=== PATIENT | male | born 2005 | race Caucasian/White ===

== ENCOUNTER 2025-03-26 15:22 | Outpatient (REF) | payer MEDICAID, SELFPAY ==
[2025-03-26 16:05] LABS: MANUAL DIFF FLAG NO
[2025-03-26 16:14] LABS: Basophils Percent Auto 0.4 % (0-2); Eosinophils Absolute Auto 0.1 X10*3/uL (0.0-0.4); Eosinophils Percent Auto 0.7 % (0-4); Hematocrit 40.6 % (42.0-52.0); Hemoglobin 14.3 g/dl (14.0-18.0); Imm Gran Abs Auto 0.02 X10*3/uL (0.00-0.03); Imm Gran Pct Auto 0.3 % (0.0-0.4); Lymphocytes Absolute Auto 2.8 X10*3/uL (1.2-4.9); Lymphocytes Percent Auto 37.3 % (20-40); Mean Corpuscular HGB Conc 35.2 g/dl (31.0-36.0); Mean Corpuscular Hemoglobin 32.4 pg (27.0-33.0); Mean Corpuscular Volume 91.9 fL (80.0-98.0); Mean Platelet Volume 9.5 fL (9.4-12.4); Monocytes Absolute Auto 0.6 X10*3/uL (0.1-1.2); Monocytes Percent Auto 8.7 % (2-11); Neutrophils Absolute Auto 3.9 x10*3/uL (2.0-8.3); Neutrophils Percent Auto 52.6 % (45-73); Platelet Count 194 X10*3/uL (160-400); Red Blood Count 4.42 X10*6/uL (4.60-5.80); Red Cell Distribution Width 12.2 % (11.0-16.0); White Blood Count 7.4 X10*3/uL (4.8-10.8)
[2025-03-26 16:22] LABS: Estimated Average Glucose 97 mg/dL; Total Hemoglobin (HGBA1C) 3747.2576 umol/L
--- OUTSIDE RECORDS SUMMARY | 2025-03-26 16:35 | XMS_ITS | Encounter Summary ---
Author Organization [employer] Address [address] [place] [address] Care Team Providers Care Supervisor Diagnostic Name Role Phone Aruna Baeza JAMSHID Primary Care Provider [phone] Encounter Details Date Type Department Care Team (Latest Contact Info) Description 03/26/2025 Travel Social History Tobacco Use Types Packs/Day Years Used Date Smoking Tobacco: Never Passive Smoke Exposure: Never Smokeless Tobacco: Former Comments:Reports Vaping cont inuously Alcohol Use Standard Drinks/Week Comments Never 0 (1 standard drink = 0.6 oz pur e alcohol) Depression Answer Date Recorded Patient Health Questionnaire-9 Score 1 02/24/2023 Housing Stability Answer Date Recorded What is your housing situation today? I have brigido sandoval 03/16/[address] you li ve. Do you have problems with any of the following? None of the above 03/16/2025 Food Insecurity Answer Date Recorded Within the past 12 months, y ou worried that your food would run out before you got money to buy more: Never True 03/16/2025 Within the past 12 months,th e food you bought just didn't last and you didn't have enough money to get more: Never True Transportation Answer Date Recorded In the past 12 months, has l ack of transportation kept you from medical appts, meetings, work or from getting things needed for daily living? No 03/16/2025 Utilities Answer Date Recorded In the past 12 months, has t he electric, gas, oil or water company threatened to shut off services in your home? No 03/16/2025 Depression Answer Date Recorded Patient Health Questionnaire-2 Score 0 02/24/2023 Internet Access Answer Date Recorded Internet Access Q1 Yes 03/16/2025 Internet Access Q2 Not on file 03/16/2025 Sex and Gender Information Value Date Recorded Sex Assigned at Male 08/24/2022 10:19 AM EDT Legal Sex Male 10:19 AM EDT Gender Identity Male 01/29/2023 9:07 AM EDT Sexual Orientation Choose not to disclose 2022 9:07 AM EDT documented as of this encounter Plan of Treatment Upcoming Encounters Date Type Department Care Team (Late st Contact Info) Description 05/18/2025 3:15 PM EDT Office Visit [facility] [address] [place] [address] Aruna Baeza NP [address] [place] [address] documented as of this encounter Visit Diagnoses Not on filedocumented in this encounter Additional Health Concerns Assessment Noted Time PHQ-9 Depression Total Score: 1 02/25/20 23 11:32 AM EDT documented as of this encounter Care Teams Supervisor Diagnostic Relationship Specialty Start Date End Date Aruna Baeza NP [address] [place] [address] PCP - General Family Medicine 12/26/24 documented as of this encounter
[2025-03-26 17:08] LABS: Cholesterol 192 mg/dL (<200); HDL Cholesterol 42 mg/dL (>40); LDL Cholesterol Calculated 113 mg/dL (<100); Triglycerides 185 mg/dL (<150)
[2025-03-27 08:28] LABS: HBS Num1 21.46 mIU/mL (0-7.99); HBc Num1 0.06 S/CO (0.00-0.79); HBsAGNum1 0.37 S/CO (0.00-0.99); HIV AB/AG Nonreactive (Nonreactive); HIV Num 1 0.07 S/CO (0.00-0.99); Hepatitis B Core Antibody Nonreactive (Nonreactive); Hepatitis B Surface Antigen Negative (Negative); ~HepC Num1 0.16 S/CO (0.00-0.79); ~Hepatitis B Surface Antibody REACTIVE (Nonreactive); ~Hepatitis C Antibody Nonreactive (Nonreactive)
[2025-03-27 11:08] LABS: CT PCR NOT DETECTED (Not Detect.); NG PCR NOT DETECTED (Not Detect.)
== END 2025-03-26 15:23 | disposition home or self-care (01) ==
LOC: HO.HHCL 15:22
PROVIDERS: Visit Provider Nurse Practitioner Family
DX: Z00.00 Encounter for general adult medical examination without abnormal findings (principal); Z11.4 Encounter for screening for human immunodeficiency virus [HIV]; Z13.1 Encounter for screening for diabetes mellitus; Z11.59 Encounter for screening for other viral diseases; Z13.220 Encounter for screening for lipoid disorders
CPT/HCPCS: 80061; 83036; 85025; 86704; 86706; 86803; 87340; 87389; 87491; 87591

== ENCOUNTER 2025-08-17 12:29 | Inpatient (IN) | payer OTHER, SELFPAY ==
--- NOTE | 2025-08-17 | ECG_ITS ---
Test Reason : CHECK QTC Blood Pressure : */* mmHG Vent. Rate : 66 BPM Atrial Rate : 66 BPM P-R Int : 124 ms QRS Dur : 86 ms QT Int : 384 ms P-R-T Axes : 74 82 57 degrees QTcB Int : 402 ms Sinus rhythm with marked sinus arrhythmia Otherwise normal ECG No previous ECGs available Referred By: Fredi Varner Electronically Signed By: SILVANA TELLO MD
--- OUTSIDE RECORDS SUMMARY | 2025-08-17 11:30 | XMS_ITS | Encounter Summary ---
Author Organization [facility] [employer] Address [address] [place] [address] Care Team Providers Care Precision Grinder Name Role Phone Aruna Baeza NP Primary Care Provider Reason for Referral * Consultation (Routine) - Pending Review Specialty Diagnoses / Procedures Referred By Diony ang Referred To Contact Physical Therapy Diagnoses Cervicalgia Aruna Baeza NP [address] [place] [address] Phone: tel: fax: Referral ID Status Reason Start Date Expiration Date Visits Requested Visits Authorized [id number] Pending Review Specialty Services Required 08/17/2026 1 1 Reason for Visit * Reason Comments Follow-up Encounter Details Date Type Department Care Team (Late st Contact Info) Description 08/17/2025 11:30 AM EDT Office Visit [facility] [address] [place] [address] Aruna Baeza NP [address] [place] [address] Cervicalgia (Primary Dx); Mood disorder (CMS/HCC); Cannabis use disorder Social History Tobacco Use Types Packs/Day Years Used Date Smoking Tobacco: Never Passive Smoke Exposure: Never Smokeless Tobacco: Former Comments:Reports Vaping cont inuously Alcohol Use Standard Drinks/Week Comments Never 0 (1 standard drink = 0.6 oz pur e alcohol) Depression Answer Date Recorded Patient Health Questionnaire-9 Score 27 08/17/2025 Patient Health Questionnaire-9 Score 27 08/17/2025 Last PHQ-9: Questionnaire Data Not on file 1 Housing Stability Answer Date Recorded What is [...] Answer Date Recorded Patient Health Questionnaire-2 Score 6 08/17/2025 Internet Access Answer Date Recorded Internet Access Q1 Yes 03/16/2025 Internet Access Q2 Not on file 03/16/2025 Sex and Gender Information Value Date Recorded Sex Assigned at Male 08/24/2022 10:19 AM EDT Legal Sex Male 10:19 AM EDT Gender Identity Male 01/29/2023 9:07 AM EDT Sexual Orientation Choose not to disclose 2022 9:07 AM EDT documented as of this encounter Last Filed Vital Signs Vital Sign Reading Time Taken Comments Blood Pressure 118/80 08/17/2025 11:14 AM EDT Pulse 71 08/17/2025 11:14 AM EDT Temperature 36.7 C (98 F) 08/17/2025 11:14 AM EDT Respiratory Rate 20 08/17/2025 11:14 AM EDT Oxygen Saturation - - Inhaled Oxygen Concentration - - Weight 64.4 kg (142 lb) 08/17/2025 11:14 AM EDT Height 175.3 cm (5' 9 ) 08/17/2025 11:14 AM EDT Body Mass Index 20.97 08/17/2025 11:14 AM EDT documented in this encounter Functional Status * Over the past 2 weeks, how often have you been bothered by any of the following problems? Question Answer Date of Assessment Author Patient Health Questionnaire-2 Score 6 08/17/2025 1:02 PM EDT Kirt Mercado Little interest or pleasure in doing things Answer Date of Assessment Author Nearly every day 08/17/2025 1:02 PM EDT Kirt Lizama * Feeling down, depressed, or hopeless Answer Date of Assessment Author Nearly every day 08/17/2025 1:02 PM EDT Kirt Lizama * Trouble falling or staying asleep, or sleeping too much Answer Date of Assessment Author Nearly every day 08/17/2025 1:02 PM EDT Kirt Lizama * Feeling tired or having little energy Answer Date of Assessment Author Nearly every day 08/17/2025 1:02 PM EDT Kirt Lizama * Poor appetite or overeating Answer Date of Assessment Author Nearly every day 08/17/2025 1:02 PM HUNTERT Kirt Lizama * Feeling bad about yourself - or that you are a failure or have let yourself or your family down Answer Date of Assessment Author Nearly every day 08/17/2025 1:02 PM Kirt Bhatia Trouble concentrating on things, such as reading the newspaper or watching television Answer Date of Assessment Author Nearly every day 08/17/2025 1:02 PM Kirt Bhatia * Moving or speaking so slowly that other people could have noticed? Or the opposite - being so fidgety or restless that you have been moving around a lot more than usual. Answer Date of Assessment Author Nearly every day 08/17/2025 1:02 PM Kirt Bhatia * Thoughts that you would be better off or hurting yourself in some way Answer Date of Assessment Author Nearly every day 08/17/2025 1:02 PM Kirt Bhatia * Patient Health Questionnaire-9 Score Answer Date of Assessment Author 27 08/17/2025 1:02 PM HUNTERT Kirt Hidalgo How difficult have these problems made it for you to do your work, take care of things at home, or get along with other people? Answer Date of Assessment Author Very difficult 08/17/2025 1:02 PM Kirt Faye Over the last 2 weeks, how often have you been bothered by any of the following problems? Question Answer Date of Assessment Author Feeling nervous, anxious, or on edge 3 08/17/2025 1:01 PM EDT Kirt Garvin Not being able to stop or control worrying 3 08/17/2025 1:01 PM EDT Kirt Garvin Worrying too much about different things 3 08/17/2025 1:01 PM EDT Kirt Garvin Trouble relaxing 3 08/17/2025 1:01 PM EDT Kirt Galeana Being so restless that it is hard to sit still 3 08/17/2025 1:01 PM EDT Kirt Garvin Becoming easily annoyed or irritable 3 08/17/2025 1:01 PM EDT Kirt Garvin Feeling afraid as if something awful might happen 3 08/17/2025 1:01 PM EDT Kirt Lizama FRANCISCO J-7 Total Score 21 08/17/2025 1:01 PM EDT Kirt Garvin documented as of this encounter Miscellaneous Notes * Assessment & Plan Note - Aruna Baeza NP - 08/17/2025 11:30 AM EDTAssociated Problem(s): Cervicalgia Orders: XR Cervical Spine 5 View; Future Referral to Physical Therapy; Future * Assessment & Plan Note - Aruna Baeza NP - 08/17/2025 11:30 AM EDTAssociated Problem(s): Mood disorder ([facility] [address]) * Assessment & Plan Note - Aruna Baeza NP - 08/17/2025 11:30 AM EDTAssociated Problem(s): Cannabis use disorder documented in this encounter Plan of Treatment Scheduled Orders Name Type Priority Associated Diagnoses Orde r Schedule XR Cervical Spine 5 View Imaging Routine Cervicalgia Expected: 08/17/2025, Expires: 08/17/2026 Scheduled Referrals Name Type Priority Associated Diagnoses Orde r Schedule Referral to Physical Therapy Outpatient Referral Routine Cervicalgia Expected: 08/17/2025 (Approximate), Expires: 08/17/2026 documented as of this encounter Visit Diagnoses Diagnosis Cervicalgia- Primary Mood disorder (CMS/HCC) Unspecified episodic mood disorder Cannabis use disorder documented in this encounter Additional Health Concerns Assessment Noted Time PHQ-9 Depression Total Score: 27 025 1:02 PM EDT documented as of this encounter Care Teams Precision Grinder Relationship Specialty Start Date End Date Aruna Baeza NP [address] [place] [address] PCP - General Family Medicine 12/26/24 documented as of this encounter
--- NOTE | 2025-08-17 12:37 | ED_ITS ---
HPI - Psych General Chief Complaint: Psychiatric Symptoms Stated Complaint: Mental Health Time Seen by Provider: 08/17/25 12:57 Source: patient, RN notes reviewed, old records reviewed and other (primary care provider called for an expect) Mode of arrival: ambulatory Limitations: no limitations History of Present Illness ED Provider: NICHOLAS Varner HPI Narrative: 20-year-old male with medical history of depression, seizure, presents to the ED due to increased depression and suicidal ideation. Patient was at his primary care doctor office when he was endorsing increased depression and suicidal ideation. Primary care doctor called the ED and presented patient as an expect. Primary care doctor stated patient has history of 2 previous suicide attempts. Patient states he has been experiencing increased depression due to him thinking about his mom who when he was 6. He is endorsing suicidal ideation without a plan. Patient states he has history of visual hallucinations and will see dark shadows, with most recent history being 3 weeks ago, however, this has resolved. Additionally, he is endorsing mid back pain due to an old fracture, however he cannot give me details surrounding this fracture, there is no history or imaging or visits for back pain. Denies alcohol or drug use, homicidal ideation, AH, VH Related Data Home Medications ?Medication ?Instructions ?Recorded ?Confirmed lamotrigine 25 mg tablet 50 mg PO DAILY depressive di sorder 08/17/25 08/17/25 lorazepam 0.5 mg tablet 0.5 mg PO DAILY PRN anxiety 08/17/25 08/17/25 quetiapine 50 mg tablet (Seroquel) 50 mg PO BEDTIME [place] N insomnia 08/17/25 08/17/25 sertraline 50 mg tablet 50 mg PO DAILY 08/17/2507/26 Allergies Allergy/AdvReac Type Severity Reaction Status Date / Time No Known Allergies Allergy Verified 08/17/25 12:40 Review of Systems 2 Review of Systems: CONST: Negative for fever, body aches and chills. HENT: Negative for neck pain/stiffness, headache, congestion, sore throat, swelling. EYES: Negative for discharge/pain or vision changes. RESP: Negative for cough/hemoptysis and shortness of breath. CV: Negative chest pain, difficulty breathing, palpitations. ABD: Negative pain, nausea, vomiting. : Negative increase frequency, dysuria, blood in urine or stool. MUSC: Negative for muscle aches, edema. POS back pain SKIN: Negative rash, lesions/sores. NEURO: Negative headache, dizziness, weakness. PSYCH: POS increased depression, suicidal ideation Yes all other systems are reviewed and are negative [facility] Past Medical History Attestation statement: The following information was validated with the patient. Source: old records reviewed and nursing notes reviewed Medical History Epileptic seizure Social History Social History Household Members: Family Housing: Apartment Do you presently have visiting nurse or other home services: No Alcohol intake: unknown Patient Tobacco Use Status: Never used Tobacco Smoked in Last 30 Days: No Use of substances other than those prescribed or required for medical reasons: Yes Substance Use Type: Marijuana Substance Use Frequency: Chronic Longstanding Currently Displaying Signs/Symptoms of Drug Intoxication Withdrawal: No Have you been hit, kicked, punched, or otherwise hurt by someone within the past year? If so, by whom?: No Do you feel safe in your current relationship?: No Current Relationship Is there a partner from a previous relationship who is making you feel unsafe now?: No Are you made to feel afraid or neglected: No Advance Directives: No Advance Directives Information Provided: Yes Do you have thoughts of harming others: None Do you have a plan to hurt others: No Plan Recently lost weight without trying: No Nutrition Risks: No Nutritional Risk Poor oral hygiene: No Physical Exam 2 Vital Signs: Vital Signs: Last Vital Signs Temp 98.5 F 08/20/25 08:00 Pulse 56 08/20/25 08:00 Resp 18 08/20/25 08:00 BP 125/71 08/20/25 08:00 Pulse Ox 99 08/20/25 08:00 O2 Del Method Room Air 08/20/25 08:00 BMI result Body Mass Index 17.9 GENERAL APPEARANCE: ?AxOx4, generally well-appearing, no acute distress. HEENT: ?NC, AT. MMM. EOMI, clear conjunctiva, oropharynx clear. NECK: ?Supple without lymphadenopathy.? No stiffness or restricted ROM. HEART:? Normal rate and regular rhythm, normal S1/S2, no m/r/g LUNGS:? CTAB, moving air well. No crackles or wheezes are heard. ABDOMEN: ?Soft, nontender, nondistended with good bowel sounds heard. BACK: No CVAT, no obvious deformity. EXTREMITIES: ?Without cyanosis, clubbing or edema. NEUROLOGICAL: ?Grossly nonfocal. Alert and oriented, moving all 4 extremities. Observed to ambulate with normal gait. Skin: ?Warm and dry without any rash. Course Course Course Narrative: Adriana Abad PUBLIC RELATIONS STUDIES DIRECTOR 08/17 1240 This is a rapid medical exam. Deferrd additional HPI, ROS, PE to primary provider. 20 yo male here with depression, SI no plan. also has cough Will need labs, WESLEY, viral testing, crisis eval. H/o seizures, off meds at this time. VSS Medications Administered Generic Name Dose Route Start Last Admin Trade Name Freq PRN Reason Stop Dose Admin Acetaminophen 650 mg 08/17/25 16:51 08/20/25 09:23 Acetaminophen 325 Mg Tablet PO 650 mg Q6H PRN Administration Headache/Pain, Scale 1-10 Hydroxyzine HCl 25 mg 08/17/25 16:51 08/19/25 23:33 Hydroxyzine Hcl 25 Mg Tablet PO 25 mg Q6H PRN Administration mild anxiety Ibuprofen 600 mg 08/18/25 16:04 08/19/25 22:28 Ibuprofen 600 Mg Tablet PO 600 mg Q8H PRN Administration Pain, Moderate(Pain Scale 4-6) Lamotrigine 50 mg 08/17/25 16:55 08/20/25 08:34 Lamotrigine 25 Mg Tablet PO 50 mg DAILY YOLANDA Administration Lidocaine 1 patch 08/19/25 15:42 08/19/25 17:15 Lidocaine 4 % Patch Adh..Patch TRANSDERMA 1 patch DAILY PRN Administration Pain, Moderate(Pain Scale 4-6) Protocol Lorazepam 0.5 mg 08/17/25 16:51 08/19/25 08:39 Lorazepam 0.5 Mg Tablet PO 0.5 mg DAILY PRN Administration Anxiety Nicotine 21 mg 08/18/25 09:00 08/20/25 08:35 Nicotine 21 Mg Patch.Td24 TRANSDERMA 21 mg DAILY YOLANDA Administration Nicotine Polacrilex 4 mg 08/17/25 16:51 08/18/25 17:54 Nicotine Polacrilex 2 Mg Gum BUCCAL 4 mg Q2H PRN Administration Nicotine Cravings Olanzapine 5 mg 08/19/25 18:01 08/19/25 23:33 Olanzapine 5 Mg Tablet PO 5 mg Q4H PRN Administration agitation Ondansetron HCl 8 mg 08/18/25 06:23 08/18/25 06:39 Ondansetron Odt 8 Mg Tab.Rapdis TRANSLINGU 8 mg Q12H PRN Administration Nausea and Vomiting Quetiapine Fumarate 50 mg 08/17/25 16:51 08/19/25 21:11 Quetiapine Fumarate 50 Mg Tablet PO 50 mg BEDTIME PRN Administration Insomnia Sertraline HCl 50 mg 08/18/25 09:00 08/20/25 08:34 Sertraline Hcl 50 Mg Tablet PO 50 mg DAILY YOLANDA Administration Trazodone HCl 50 mg 08/17/25 16:51 08/19/25 23:33 Trazodone Hcl 50 Mg Tablet PO 50 mg BEDTIME MRX1 PRN Administration Insomnia Discontinued Medications Generic Name Dose Route Start Last Admin Trade Name Freq PRN Reason Stop Dose Admin Acetaminophen 975 mg 08/17/25 14:25 08/17/25 15:00 Acetaminophen 325 Mg Tablet PO 08/17/25 14:26 975 mg ONCE ONE Administration Ibuprofen 400 mg 08/17/25 14:25 08/17/25 15:00 Ibuprofen 400 Mg Tablet PO 08/17/25 14:26 400 mg ONCE ONE Administration Tramadol HCl 50 mg 08/19/25 00:35 08/19/25 00:46 Tramadol Hcl 50 Mg Tablet PO 08/19/25 00:36 50 mg ONCE ONE Administration Medical Decision Making Medical Decision Making MDM Narrative: 20-year-old male with medical history of depression, seizure, presents to the ED due to increased depression and suicidal ideation. Patient was at his primary care doctor office when he was endorsing increased depression and suicidal ideation. Primary care doctor called the ED and presented patient as an expect. Primary care doctor stated patient has history of 2 previous suicide attempts. Patient states he has been experiencing increased depression due to him thinking about his mom who when he was 6. He is endorsing suicidal ideation without a plan. Patient states he has history of visual hallucinations and will see dark shadows, with most recent history being 3 weeks ago, however, this has resolved. Additionally, he is endorsing mid back pain due to an old fracture, however he cannot give me details surrounding this fracture, there is no history or imaging or visits for back pain. Denies alcohol or drug use, homicidal ideation, AH, VH EKG sinus rhythm with sinus arrhythmia, no ST-elevation/depression, T-wave abnormality, prolonged QT Labs without leukocytosis/leukopenia, a stable normocytic anemia with a hemoglobin of 13.4, hematocrit of 37.9, no electrolyte abnormality. UA reveals 1+ urine protein, without evidence of blood or bacteria. U tox positive for marijuana only. Patient met with the care team who ultimately decided section 12 was needed, and patient needed an inpatient level of care. Differential Diagnosis Differential Diagnoses: The differential diagnosis associated with the presentation includes Increased depression Increased anxiety Suicidal ideation Visual hallucination Admission/Observation Consideration of admission/observation: Escalation of care including admission/observation considered Consult Healthcare Provider Management of the patient was discussed with: Behavioral Health Provider (CARE team) Lab Data MDM Lab Attestation statement: I reviewed the patient's lab results. 08/17/25 13:22 08/20/25 07:22 Labs: Lab Results 08/17/25 08/17/25 Range/Units 13:22 14:12 WBC 6.1 (4.8-10.8) X10*3/uL RBC 4.15 L (4.60-5.80) X10*6/uL Hgb 13.4 L (14.0-18.0) g/dl Hct 37.9 L (42.0-52.0) % MCV 91.3 (80.0-98.0) fL MCH 32.3 (27.0-33.0) pg MCHC 35.4 (31.0-36.0) g/dl RDW 12.4 (11.0-16.0) % Plt Count 163 (160-400) X10*3/uL MPV 8.9 L (9.4-12.4) fL Immature Gran % (Auto) 0.2 (0.0-0.4) % Neut % (Auto) 54.7 (45-73) % Lymph % (Auto) 36.8 (20-40) % [place] % (Auto) 7.3 (2-11) % Eos % (Auto) 0.7 (0-4) % Baso % (Auto) 0.3 (0-2) % Lymph # (Auto) 2.3 (1.2-4.9) X10*3/uL [place] # (Auto) 0.5 (0.1-1.2) X10*3/uL Eos # (Auto) 0.0 (0.0-0.4) X10*3/uL Baso # (Auto) 0.0 (0.0-0.2) X10*3/uL Abs Immat Gran (auto) 0.01 (0.00-0.03) X10*3/uL Absolute Neuts (auto) 3.4 (2.0-8.3) x10*3/uL Absolute Nucleated RBC 0.000 (0.0-0.012) X10*3/uL Nucleated RBC % (auto) 0.0 (0.0-0.2) /100WBC Sodium 141 (135-145) mmol/L Potassium 4.3 (3.3-5.1) mmol/L Chloride 108 (96-108) mmol/L Carbon Dioxide 27 (22-29) mmol/L Anion Gap 10 L (12-20) BUN 12 (9-16) mg/dL Creatinine 0.86 (0.5-1.4) mg/dL Estim Creat Clear Calc 122.5 Estimated GFR > 60 Random Glucose 77 (60-115) mg/dL Calcium 9.6 (8.4-10.2) mg/dL Total Bilirubin 0.3 (0.0-1.0) mg/dL Direct Bilirubin 0.1 (0.0-0.5) mg/dL AST 24 (5-37) U/L ALT 18 (0-40) U/L Alkaline Phosphatase 82 (39-117) U/L Total Protein 7.3 (6.5-8.0) g/dL Albumin 5.1 H (3.5-5.0) g/dL Urine Color Yellow Urine Appearance Clear Urine pH 6.0 (5.0-9.0) Ur Specific [place] 1.020 (1.005-1.025) Urine Protein 30 (1+) H (Neg-Trace) mg/dL Urine Glucose (UA) Negative (Negative) mg/dL Urine Ketones Negative (Negative) mg/dL Urine Blood Negative (Negative) Urine Nitrite Negative (Negative) Ur Leukocyte Esterase Negative (Negative) Urine RBC 0-2 (0-2) /HPF Urine WBC 0-5 (0-5) /HPF Ur Squamous Epith Cells 0-2 (0-2) /HPF Urine Bacteria None Seen (None Seen) Hyaline Casts 0-2 (0-2) /LPF Urine Opiates Screen Not Detected (Not Detect) Ur Buprenorphine Scrn Not Detected (Not Detect) ng/mL Ur Oxycodone Screen Not Detected (Not Detect) ng/mL Urine Methadone Screen Not Detected (Not Detect) ng/mL Urine Fentanyl Screen Not Detected (Not Detect) Ur Barbiturates Screen Not Detected (Not Detect) Ur Phencyclidine Scrn Not Detected (Not Detect) Ur Amphetamines Screen Not Detected (Not Detect) U Benzodiazepines Scrn Not Detected (Not Detect) Urine Cocaine Screen Not Detected (Not Detect) U Marijuana (THC) Screen POSITIVE H (Not Detect) Ethyl Alcohol < 10 mg/dL COVID-19 (FLORI) Negative (Negative) COVID-19 Clin Com See Note Influenza Type A (JAN) Negative (Negative) Influenza Type B (JAN) Negative (Negative) Influenza A & B Note See Note Independent Interpretation I performed an independent interpretation of an: EKG Interpretation: I personally interpreted the EKG which reveals sinus rhythm with sinus arrhythmia, no ST-elevation/depression, T-wave abnormality, lengthened QT Vent. Rate : 66 BPM Atrial Rate : 66 BPM P-R Int : 124 ms QRS Dur : 86 ms QT Int : 384 ms P-R-T Axes : 74 82 57 degrees QTcB Int : 402 ms Sinus rhythm with marked sinus arrhythmia Otherwise normal ECG No previous ECGs available External Record Review External record reviewed: Inpatient record, Office record and Outpatient record Chronic Conditions Patient?s care impacted by: Other (Depression) Discharge Plan Discharge Patient Disposition: Admitted As Inpatient Interventions: Admission Worksheet (ED) Last Done: 08/17/25 16:52 Discharge Date/Time: 08/17/25 16:53
[2025-08-17 12:38] VITALS: BP 123/67; PULSE 78; RESP 16; TEMP 36.6; O2SAT 98; BMI 17.9
--- NOTE | 2025-08-17 12:59 | MHC.EDTECH ---
Belongings Secured: 1 Patient belonging bag tied to Backpack secured in Pod locker #3.
--- NOTE | 2025-08-17 13:11 | PC.NURSE ---
Pt ambulated back to [facility] at this time by degreasing wheel operator after size changer into safety clothing. Pt coming from triage reporting SI thoughts, states his plans would be to jump off of a bridge. Pt states he has had thoughts in the past and states he has attempted before but states it was not by the same means, but did not want to elaborate more details at this time. Pt is withdrawn, but conversing. Pt states that he has been taking his medications, but did not take them this morning, this RN asked if he knew what medications he takes and their dosages but he was unable to tell, states that he just takes what they prescribe him, expect from PCP office stated they were concerned he had not been taking his medications. Pt explained the process of getting lab work, and urine sample for medical clearance and that he would be seen by careteam after that. Pt in agreement with plan, he was offered PO intake at this time but declined, pt also declined having TV turned on at this time. Pt is sitting on the edge of his bed at this time, no distress. Pt is rubbing his hands back and worth and not wanting to make eye contact with staff.
[2025-08-17 13:28] LABS: MANUAL DIFF FLAG NO
[2025-08-17 13:31] LABS: Hematocrit 37.9 % (42.0-52.0); Hemoglobin 13.4 g/dl (14.0-18.0); Imm Gran Abs Auto 0.01 X10*3/uL (0.00-0.03); Imm Gran Pct Auto 0.2 % (0.0-0.4); Lymphocytes Absolute Auto 2.3 X10*3/uL (1.2-4.9); Mean Corpuscular HGB Conc 35.4 g/dl (31.0-36.0); Mean Corpuscular Hemoglobin 32.3 pg (27.0-33.0); Mean Corpuscular Volume 91.3 fL (80.0-98.0); NRBC Abs Auto 0.000 X10*3/uL (0.0-0.012); NRBC Pct Auto 0.0 /100WBC (0.0-0.2); Platelet Count 163 X10*3/uL (160-400); Red Blood Count 4.15 X10*6/uL (4.60-5.80); White Blood Count 6.1 X10*3/uL (4.8-10.8)
[2025-08-17 13:43] LABS: COVID-19 Test Negative (Negative); IDNOW Serial# 58CA691E
[2025-08-17 13:45] LABS: IDNOW Serial# 55D5AD1C; Influenza B2 Negative (Negative)
[2025-08-17 13:56] LABS: Alanine Aminotransferase 18 U/L (0-40); Albumin Level 5.1 g/dL (3.5-5.0); Alkaline Phosphatase 82 U/L (39-117); Anion Gap 10 (12-20); Aspartate Amino Transferase 24 U/L (5-37); Blood Urea Nitrogen 12 mg/dL (9-16); Calcium 9.6 mg/dL (8.4-10.2); Carbon Dioxide 27 mmol/L (22-29); Chloride 108 mmol/L (96-108); Creatinine Clr Calc Pharmacy 122.5; Estimated Glomerular Filt Rate > 60; Potassium 4.3 mmol/L (3.3-5.1); Sodium 141 mmol/L (135-145); Total Protein 7.3 g/dL (6.5-8.0)
--- NOTE | 2025-08-17 14:02 | PC.NURSE ---
Primary care officce faxed over depression screening form and is now in the pt chart.
[2025-08-17 14:36] LABS: Cannabinoid Screen Urine POSITIVE (Not Detect)
[2025-08-17 15:18] LABS: Appearance Urine Clear; Glucose Urine UA Negative (Negative); PH 6.0 (5.0-9.0); Specific Gravity - Urine 1.020 (1.005-1.025); UMIC TRIGGER UA YES
--- OUTSIDE RECORDS SUMMARY | 2025-08-17 16:19 | XMS_ITS | Encounter Summary ---
Author Organization [facility] Address [address] [facility] 7t [place] [address] Care Team Providers Care Copy Preparer Name Role Phone Aruna Baeza MEDICAL SOCIAL WORKER Primary Care Provider [phone] Reason for Visit * Reason Onset Date Comments fyi 08/17/2025 Encounter Details Date Type Department Care Team (Late st Contact Info) Description 08/17/2025 Telephone [facility] [address] [place], [place] [phone] Aruna Baeza NP [address] [place] [address] fyi Social History Tobacco Use Types Packs/Day Years [...] AM EDT documented as of this encounter Functional Status * Over the past 2 weeks, how often have you been bothered by any of the following problems? Question Answer Date of Assessment Author Patient Health Questionnaire-2 Score 6 08/17/2025 1:02 PM EDT Kirt Mercado * Little interest or pleasure in doing things [...] 1:02 PM EDT Kirt Lizama * Feeling bad about yourself - or that you are a failure or have let yourself or your family down Answer Date of Assessment Author Nearly every day 08/17/2025 1:02 PM EDT Kirt Lizama * Trouble concentrating on things, such as reading the newspaper or watching television Answer Date of Assessment Author Nearly every day 08/17/2025 1:02 PM EDT Kirt Lizama * Moving or speaking so slowly that other people could have noticed? Or the opposite - being so fidgety or restless that you have been moving around a lot more than usual. Answer Date of Assessment Author Nearly every day 08/17/2025 1:02 PM EDT Kirt Lizama * Thoughts that you would be better off or hurting yourself in some way Answer Date of Assessment Author Nearly every day 08/17/2025 1:02 PM EDT Kirt Lizama * Patient Health Questionnaire-9 Score Answer Date of Assessment Author 27 08/17/2025 1:02 PM EDT Kirt Hidalgo * How difficult have these problems made it for you to do your work, take care of things at home, or get along with other people? Answer Date of Assessment Author Very difficult 08/17/2025 1:02 PM EDT Kirt Hidalgo * Over the last 2 weeks, how often [...] as of this encounter Miscellaneous Notes * Telephone Encounter - [place] Mario - 08/17/2025 12:44 PM EDT Tc from pt aunt stating she was advised to call when pt went to the ER , they are currently there. Contact at [phone] documented in this encounter Plan of Treatment Not on file documented as of this encounter Visit Diagnoses Not on filedocumented in this encounter Additional Health Concerns Assessment Noted Time PHQ-9 Depression Total Score: 27 025 1:02 PM EDT documented as of this encounter Care Teams Copy Preparer Relationship Specialty Start Date End Date Aruna Baeza NP [address] [place] [phone] PCP - General Family Medicine 12/26/24 documented as of this encounter
--- OUTSIDE RECORDS SUMMARY | 2025-08-17 16:19 | XMS_ITS | Encounter Summary ---
Author Organization [employer] Address [address] 7[address] [place] [address] Care Team Providers Care Pizza Chef Name Role Phone Aruna Baeza JAMSHID Primary Care Provider Encounter Details Date Type Department Care Team (Latest Contact Info) Description 08/17/2025 Travel Social History Tobacco Use Types Packs/Day [...] your housing situation today? I have brigido lori 03/16/[address] you li [...] Questionnaire-2 Score 6 08/17/2025 1:02 PM EDT Krit Mercado * Little interest or pleasure in [...] Kirt Garvin documented as of this encounter Plan of Treatment Not on file documented as of this encounter Visit Diagnoses Not on filedocumented in this encounter Additional Health Concerns Assessment Noted Time PHQ-9 Depression Total Score: 27 025 1:02 PM EDT documented as of this encounter Care Teams Pizza Chef Relationship Specialty Start Date End Date Aruna Baeza NP [address] [place] [phone] PCP - General Family Medicine 12/26/24 documented as of this encounter
--- OUTSIDE RECORDS SUMMARY | 2025-08-17 16:19 | XMS_ITS | Encounter Summary ---
Author Organization [employer] Address [address] 7[address] [place] [address] Care Team Providers Care Self Pay Specialist Name Role Phone Aruna Baeza NP Primary Care Provider Encounter Details Date Type Department Care Team (Late st Contact Info) Description 08/13/2025 Telephone [facility] [address] [place], [place] [phone] Aruna Baeza NP [address] [place] [address] Social History Tobacco Use Types Packs/Day Years Used Date Smoking Tobacco: Never Passive Smoke Exposure: Never Smokeless Tobacco: Former Comments:Reports Vaping cont inuously Alcohol Use Standard Drinks/Week Comments Never 0 (1 standard drink = 0.6 oz pur e alcohol) Depression Answer Date Recorded Patient Health Questionnaire-9 Score 19 06/01/2025 Patient Health Questionnaire-9 Score 19 06/01/2025 Last PHQ-9: Questionnaire Data Not on file 0 06/01/2025 Housing Stability Answer Date Recorded What is [...] Answer Date Recorded Patient Health Questionnaire-2 Score 4 06/01/2025 Internet Access Answer Date Recorded Internet Access Q1 Yes 03/16/2025 Internet Access Q2 Not on file 03/16/2025 Sex and Gender Information Value Date Recorded Sex Assigned at Male 08/24/2022 10:19 AM EDT Legal Sex Male 10:19 AM EDT Gender Identity Male 01/29/2023 9:07 AM EDT Sexual Orientation Choose not to disclose 2022 9:07 AM EDT documented as of this encounter Miscellaneous Notes * Telephone Encounter - Aruna Baeza NP - 08/13/2025 1:09 PM EDT Care into [facility] counseling, detailed message left for [place] of prescriber regarding pcp concerns and mh. documented in this encounter Plan of Treatment Not on file documented as of this encounter Visit Diagnoses Not on filedocumented in this encounter Additional Health Concerns Assessment Noted Time PHQ-9 Depression Total Score: 19 025 4:42 PM EDT documented as of this encounter Care Teams Self Pay Specialist Relationship Specialty Start Date End Date Aruna Baeza NP [address] [place] [phone] PCP - General Family Medicine 12/26/24 documented as of this encounter
--- OUTSIDE RECORDS SUMMARY | 2025-08-17 16:19 | XMS_ITS | Encounter Summary ---
Author Organization [employer] Address [address] [place] [address] Care Team Providers Care Oil Process Stillman Name Role Phone Aruna Baeza JAMSHID Primary Care Provider [phone] Encounter Details Date Type Department Care Team (Late st Contact Info) Description 08/17/2025 Orders Only GENERIC EXTERNAL DATA DEPARTMENT Provider, Generic External Data Social History Tobacco Use Types Packs/Day Years [...] 08/17/2025 1:02 PM [place] Kirt Lizama * Moving or speaking so [...] on file documented as of this encounter Procedures Procedure Name Priority Date/Time Associated Diagnosis Comments DRUG MONITOR, PANEL 1, SCREEN, URINE Routine 08/17/2025 2:12 PM EDT URINALYSIS, COMPLETE Routine 08/17/2025 2:12 PM EDT INFLUENZA A B2 ID NOW (PATEL) Routine 08/17/2025 1:22 PM EDT COVID-19 ID NOW (PATEL) Routine 08/17/2025 1:22 PM EDT ETHANOL Routine 08/17/2025 1:22 PM EDT CBC WITH AUTO DIFFERENTIAL Routine 08/17/2025 1:22 PM EDT HEPATIC FUNCTION PANEL Routine 08/17/2025 1:22 PM EDT BASIC METABOLIC PANEL Routine 08/17/2025 1:22 PM EDT documented in this encounter Results * (ABNORMAL) Urinalysis Complete (08/17/2025 2:12 PM EDT) Color Urine Yellow [facility] Appearance Urine Clear [facility] PH 6.0 5.0 - 9.0 [facility] Glucose Urine UA Negative Negative mg/dL [facility] Urine Blood Negative Negative [facility] Specific Strum - Urine 1.020 1.005 - 1.025 [facility] Urine Protein 30 (1+)(A) Neg-Trace mg/dL [facility] Urine Ketones Negative Negative mg/dL [facility] Nitrite Urine Negative Negative [facility] Leukocyte Esterase Urine Negative Negative [facility] RBC Urine 0-2 0 - 2 /HPF [facility] Urine WBC 0-5 0 - 5 /HPF [facility] Urine Squamous Epithelial Cell 0-2 0 - 2 /HPF [facility] Urine Bacteria None Seen None Seen [facility] Hyaline Casts, Urine 0-2 0 - 2 /LPF [facility] 08/17/2025 2:12 PM EDT 08/17/2025 3:13 PM EDT us Generic External Data Provider LAB URINE ORDERAB LES Final Result [facility] [address] [place] [phone] [phone] * (ABNORMAL) Drug Monitoring, Panel 1, Screen, Urine (08/17/2025 2:12 PM EDT) Opiate Screen Urine Not Detected Not Detect [facility] Comment:Opiate cut-off is 30 0 ng/mL.Positive results are unconfirmed and should not be used fornon-medical purposes. Barbiturates, Urine Not Detected Not Detect [facility] Comment:Barbiturate cut-off is 200 ng/mL.Positive results are unconfirmed and should not be used fornon-medical purposes. Phencyclidine Screen Urine Not Detected Not Detect [facility] Comment:Phencyclidine cut-of f is 25 ng/mL.Positive results are unconfirmed and should not be used fornon-medical purposes. Amphetamine Screen Urine Not Detected Not Detect [facility] Comment:Amphetamine cut-off is 1000 ng/mL.Positive results are unconfirmed and should not be used fornon-medical purposes. Benzodiazepines Screen Urine Not Detected Not Detect [facility] Comment:Benzodiazepine cut-o ff is 200 ng/mL.Positive results are unconfirmed and should not be used fornon-medical purposes. Cocaine Screen Urine Not Detected Not Detect [facility] Comment:Cocaine cut-off is 3 00 ng/mL.Positive results are unconfirmed and should not be used fornon-medical purposes. Cannabinoid Screen Urine POSITIVE(A) Not Detect [facility] Comment:Cannabinoid cut-off is 50 ng/mL.Positive results are unconfirmed and should not be used fornon-medical purposes. Methadone Screen, Urine Not Detected Not Detect ng/mL [facility] Comment:Methadone cut-off is 300 ng/mL.Positive results are unconfirmed and should not be used fornon-medical purposes. FENTANYL URINE Not Detected Not Detect [facility] Comment:Fentanyl cut-off is 1 ng/mL.Positive results are unconfirmed and should not be used fornon-medical purposes. Oxycodone Urine Screen Not Detected Not Detect ng/mL [facility] Comment:Oxycodone cut-off is 100 ng/mL.Positive results are unconfirmed and should not be used fornon-medical purposes. Buprenorphine Screen Not Detected Not Detect ng/mL [facility] Comment:Buprenorphine cut-of f is 5 ng/mL.Positive results are unconfirmed and should not be used fornon-medical purposes. 08/17/2025 2:12 PM EDT 08/17/2025 2:17 PM EDT Generic External Data Provider LAB URINE ORDERAB LES Final Result Performing Organization Address [facility]/ZIP Co de Phone Number [facility] [address] [place] [phone] * Ethanol (08/17/2025 1:22 PM EDT) ETHANOL (MG/DL) IN SER/PLAS <10 mg/dL [facility] Comment:Serum/plasma ethanol results are to be used formedical/treatment purposes only. 08/17/2025 1:22 PM EDT 08/17/2025 1:26 PM EDT Generic External Data Provider LAB BLOOD ORDERAB LES Final Result Performing Organization Address [facility] Co de Phone Number [facility] [address] [place] [phone] * (ABNORMAL) Basic Metabolic Panel (08/17/2025 1:22 PM EDT) Sodium 141 135 - 145 mmol/L [facility] Potassium 4.3 3.3 - 5.1 mmol/L [facility] Chloride 108 96 - 108 mmol/L [facility] Carbon Dioxide 27 22 - 29 mmol/L [facility] Anion Gap 10(L) 12 - 20 [facility] Urea Nitrogen (BUN) 12 9 - 16 mg/dL [facility] Creatinine, Serum 0.86 0.5 - 1.4 mg/dL [facility] Creatinine Clr Calc Pharmacy 122.5 [facility] Comment:eGFR (calculated fro m the MDRD study equation) and eCrCl(calculated from the Cockcroft-Gault equation) are based ondifferent parameters and may not yield comparable results.If eCrCl result is absurd, please check patient'sheight/weight. Estimated Glomerular Filt Rate >60 [facility] Comment:Chronic Kidney Disea se: Estimated GFR < 60 mL/min/1.83r9Hohssw Kidney Disease: Estimated GFR < 15 mL/min/1.73m2 Glucose 77 60 - 115 mg/dL [facility] Calcium 9.6 8.4 - 10.2 mg/dL [facility] 08/17/2025 1:22 PM EDT 08/17/2025 1:26 PM EDT Generic External Data Provider LAB BLOOD ORDERAB LES Final Result Performing Organization Address [facility] Co de Phone Number [facility] [address] [place] [phone] * (ABNORMAL) Hepatic Function Panel (08/17/2025 1:22 PM EDT) Pathologist [facility] Bilirubin, Total 0.3 0.0 - 1.0 mg/dL [facility] Bilirubin, Direct 0.1 0.0 - 0.5 mg/dL [facility] Aspartate Amino Transferase 24 5 - 37 U/L [facility] Alanine Aminotransferase 18 0 - 40 U/L [facility] Total Protein 7.3 6.5 - 8.0 g/dL [facility] Albumin Level 5.1(H) 3.5 - 5.0 g/dL [facility] Alkaline Phosphatase 82 39 - 117 U/L [facility] 08/17/2025 1:22 PM EDT 08/17/2025 1:26 PM EDT Generic External Data Provider LAB BLOOD ORDERAB LES Final Result Performing Organization Address [facility] Co de Phone Number [facility] [address] [place] [phone] * Influenza A B2 ID NOW (Patel) (08/17/2025 1:22 PM EDT) IDNOW SERIAL# [id number] [facility] Influenza A Negative Negative [facility] Influenza B2 Negative Negative [facility] Influenza A B2 Note See Note [facility] Comment:The Patel ID NOW In fluenza A B2 test is used for thequalitative detection of influenza A and B from patientswith signs and symptoms of respiratory infection.Negative results do not preclude influenza virus infectionand should not be used as the sole basis for diagnosis,treatment or other patient management decisions.There is a risk of false negative results due to thepresence of variants in the viral targets of the assay, lowlevels of virus in the specimen and co- infection withRespiratory Syncytial Virus. 08/17/2025 1:22 PM EDT 08/17/2025 1:26 PM EDT us Generic External Data Provider LAB MICROBIOLOGY - GENERAL ORDERABLES Final Result [facility] [address] [place] [phone] * COVID-19 ID NOW (PATEL) (08/17/2025 1:22 PM EDT) IDNOW SERIAL# [id number] [facility] COVID-19 TEST Negative Negative [facility] COVID-19 NOTE See Note [facility] Comment: Results are for the identification of SARS-CoV2 RNA. TheSARS-CoV2 RNA is generally detectable in respiratory samplesduring the acute phase of infection. Positive results areindicative of the presence of SARS-CoV-2 RNA; clinicalcorrelation with patient history and other diagnosticinformation is necessary to determine patient infectionstatus. Positive results do not rule out bacterial infectionor co- infection with other viruses.Testing facilities within the [facility] and itsterritories are required to report all positive results tothe appropriate public health authorities.Negative results should be treated as presumptive and, ifinconsistent with clinical signs and symptoms or necessaryfor patient management, should be tested with differentauthorized or cleared molecular tests. Negative results donot preclude SARS-CoV2 RNA infection and should not be usedas the sole basis for patient management decisions. Negativeresults should be considered in the context of a patient'srecent exposures, history and the presence of clinical signsand symptoms consistent with COVID-19.This test has been authorized by the FDA under an EmergencyUse Authorization (EUA) for use by authorized laboratories.Testing performed on the [employer] ID NOW utilizing NAAT. 08/17/2025 1:22 PM EDT 08/17/2025 1:26 PM EDT us Generic External Data Provider LAB MOLECULAR JANIE GNOSTICS ORDERABLES Final Result [facility] [address], [place] [phone] * (ABNORMAL) CBC auto differential (08/17/2025 1:22 PM EDT) White Blood Count 6.1 4.8 - 10.8 X10*3/uL [facility] Red Blood Count 4.15(L) 4.60 - 5.80 X10*6/uL [facility] Hemoglobin 13.4(L) 14.0 - 18.0 g/dl [facility] Hematocrit 37.9(L) 42.0 - 52.0 % [facility] Mean Corpuscular Volume 91.3 80.0 - 98.0 fL [facility] Mean Corpuscular Hemoglobin 32.3 27.0 - 33.0 pg [facility] Mean Corpuscular HGB Conc 35.4 31.0 - 36.0 g/dl [facility] Red Cell Distribution Width 12.4 11.0 - 16.0 % [facility] Platelet Count 163 160 - 400 X10*3/uL [facility] Mean Platelet Volume 8.9(L) 9.4 - 12.4 fL [facility] Neutrophils Percent Auto 54.7 45 - 73 % [facility] Imm Gran Pct Auto 0.2 0.0 - 0.4 % [facility] Lymphocytes Percent Auto 36.8 20 - 40 % [facility] Monocytes Percent Auto 7.3 2 - 11 % [facility] Eosinophils Percent Auto 0.7 0 - 4 % [facility] Basophils Percent Auto 0.3 0 - 2 % [facility] NRBC Pct Auto 0.0 0.0 - 0.2 /100WBC [facility] Neutrophils Absolute Auto 3.4 2.0 - 8.3 x10*3/uL [facility] Imm Gran Abs Auto 0.01 0.00 - 0.03 X10*3/uL [facility] Lymphocytes Absolute Auto 2.3 1.2 - 4.9 X10*3/uL [facility] Monocytes Absolute Auto 0.5 0.1 - 1.2 X10*3/uL [facility] Eosinophils Absolute Auto 0.0 0.0 - 0.4 X10*3/uL [facility] Basophils Absolute Auto 0.0 0.0 - 0.2 X10*3/uL [facility] NRBC Abs Auto 0.000 0.0 - 0.012 X10*3/uL [facility] 08/17/2025 1:22 PM EDT 08/17/2025 1:26 PM EDT us Generic External Data Provider LAB BLOOD ORDERAB LES Final Result [facility] [address] [place] [phone] documented in this encounter Visit Diagnoses Not on filedocumented in this encounter Additional Health Concerns Assessment Noted Time PHQ-9 Depression Total Score: 27 025 1:02 PM EDT documented as of this encounter Care Teams Oil Process Stillman Relationship Specialty Start Date End Date Aruna Baeza NP [address] [place] [address] PCP - General Family Medicine 12/26/24 documented as of this encounter
--- OUTSIDE RECORDS SUMMARY | 2025-08-17 16:19 | XMS_ITS | Encounter Summary ---
Author Organization [email or web address] Address [address] [facility] [address]t [place] [address] Care Team Providers Care Nuclear Radiologist Name Role Phone Aruna Baeza SENIOR TRAINER Primary Care Provider [phone] Reason for Visit * Reason Onset Date Comments CHARTPREP 08/16/2025 Encounter Details Date Type Department Care Team (Late st Contact Info) Description 08/16/2025 Telephone [facility] [address] [place] [address] Aruna Baeza NP [address] [place] [address] CHARTPREP Social History Tobacco Use Types Packs/Day Years [...] encounter Miscellaneous Notes * Telephone Encounter - Tommie Glover [place] - 08/16/2025 11:43 AM EDT Chart Prep Labs: done Images: not applicable Referrals: Sleep medicine appointment pt was called several time to scheduled and letter was sent and pt didn't called back.Neurology referral needs to be refaxed to Adult neurology on [address] [place] [address]. Vaccines due: Covid, Flu, and MCV4 Screenings: family planning Overdue care gaps: Not applicable documented in this encounter Plan of Treatment Not on file documented as of this encounter Visit Diagnoses Not on filedocumented in this encounter Additional Health Concerns Assessment Noted Time PHQ-9 Depression Total Score: 19 025 4:42 PM EDT documented as of this encounter Care Teams Nuclear Radiologist Relationship Specialty Start Date End Date Aruna Baeza NP [address] [place] [address] PCP - General Family Medicine 12/26/24 documented as of this encounter
--- OUTSIDE RECORDS SUMMARY | 2025-08-17 16:19 | XMS_ITS | Clinical Summary ---
Author Organization [employer] Address [address] [place] [address] Care Team Providers Care Slip Presser Name Role Phone AmandaAruna louis JAMSHID Primary Care Provider Allergies No known active allergies Medications * This document contains information received from the source organization and may not represent a complete record from that organization. acetaminophen (Tylenol) 325 MG tablet Take 1 tablet by mouth every 6 (six) hours if needed for pain. 12/26/19 25 Active lidocaine (Lidoderm) 5 % patch Apply 1 patch topically Once per day. 12/26/19 25 Active sertraline (Zoloft) 50 MG tablet Take 1 tablet (50 mg) by mouth Once per day. 30 tablet 1 08/03/20 25 025 Active QUEtiapine (SEROquel) 50 MG tablet Take 2 tablets (100 mg) by mouth at bedtime. Take 2 tablets by mouth at bedtime. 60 tablet 1 08/10/20 25 Active LORazepam (Ativan) 0.5 MG tablet Take 1 tablet (0.5 mg) by mouth if needed each day for anxiety for up to 5 days. 5 tablet 08/10/20 25 Active lamoTRIgine (LaMICtal) 25 MG tablet Take 1 tablet (25 mg) by mouth Once per day for 14 days, THEN 2 tablets (50 mg) Once per day for 14 days. 30 tablet 08/17/20 25 025 Active sertraline (Zoloft) 50 MG tablet Take 0.5 tablets (25 mg) by mouth Once per day for 7 days, THEN 1 tablet (50 mg) Once per day for 23 days. 27 tablet 1 06/01/20 25 025 Discontinued QUEtiapine (SEROquel) 50 MG tablet Take 1 tablet (50 mg) by mouth at bedtime. 30 tablet 06/26/20 25 025 Discontinued lamoTRIgine (LaMICtal) 25 MG tablet TAKE 1 TABLET BY MOUTH EVERY DAY 30 tablet 07/09/20 25 025 Discontinued(Re order (will not trigger notification to Pharmacy)) QUEtiapine (SEROquel) 50 MG tablet TAKE 1 TABLET BY MOUTH AT BEDTIME 30 tablet 07/25/20 25 025 Discontinued(Re order (will not trigger notification to Pharmacy)) Active Problems Problem Noted Date Diagnosed Date Cervicalgia 08/17/2025 Assessment & Plan (08/17/2025 11:32 AM EDT): Orders: XR Cervical Spine 5 View; Future Referral to Physical Therapy; Future Mood disorder 08/17/2025 Assessment & Plan (08/17/2025 11:32 AM EDT): Cannabis use disorder 08/17/2025 Assessment & Plan (08/17/2025 11:32 AM EDT): Acute stress disorder 08/17/2025 Anxiety 06/29/2025 Assessment & Plan (06/29/2025 10:19 AM EDT): Improved slightly with vilma, willing to continue Referred for psychiatric care Safety plan reviewed Aunt and grandmother present and involved in care Persistent depressive disorder 03/26/2025 Assessment & Plan (07/06/2025 1:47 PM EDT): Initiate SSRI, monitor closely for increased SI Continue therapy, family present Referral to psychiatry History of suicidal ideation 03/26/2025 Insomnia 03/26/2025 Irritability and anger 03/26/2025 Adult wellness visit 03/26/2025 Snoring 03/26/2025 Seizure (CMS/HCC) 03/26/2025 Routine health maintenance 02/24/2023 Assessment & Plan (04/28/2023 11:56 AM EDT): Addressing patients vaccination status: JASWINDER was able to contact his previous pediatric office in [place]. They faxed data over. JASWINDER will enter into [employer]. Will contact patient if he needs f/up for vaccinations. Assessment & Plan (03/02/2023 10:15 AM EDT): - Follow in one year, or sooner PRN. - ER/return precautions discussed. * Anticipatory guidance (discussed or covered in a handout given to the family) - Confidentiality of visit documentation. - Puberty, sex, abstinence, safe dating. - Avoiding tobacco, drugs, alcohol; and never getting into a car with someone under the influence. - Dealing with stress. - Discipline and role models. - Seat belts, helmets and safety gear, sunscreen - Internet safety, limiting screen time - Importance of daily exercise. - Obesity prevention and adequate calcium. - Good dental hygiene. History of creation of ostomy ([facility]) 02/25/20 Assessment & Plan (04/28/2023 11:49 AM EDT): Patient to have ostomy removed on May 09 or . Gave reassurance to patient who said he was nervous. Assessment & Plan (02/24/2023 1:24 PM EDT): Ostomy looked healthy. I referral him to GI and instructed him that he will receive a call from them for an appointment. I also told him that they may send him back to me and refuse to remove the ostomy. In this case we will refer him to general surgery. Sleep apnea 02/24/2023 Assessment & Plan (02/24/2023 1:15 PM EDT): Ordered polysomnography, placed in note that I wanted a home study. Patient states that he snores bad and gasps for breath sometimes at night. Constipation 11/07/2011 Encounters * This document contains information received from the source organization and may not represent a complete record from that organization. Date Type Department Care Team Description 08/17/2025 11:30 AM EDT Office Visit [facility] [address] [place] [id number] Aruna Baeza NP Cervicalgia (Primary Dx); Mood disorder ([facility]); Cannabis use disorder 08/17/2025 Orders Only GENERIC EXTERNAL DATA DEPARTMENT Provider, Generic External Data 08/17/2025 Telephone [facility] [address] [facility] [place] [address] Aruna Baeza, JAMSHID fyi 08/17/2025 Travel 08/16/2025 Telephone [facility] [address] [facility] [place], JASWINDER [id number] Aruna Baeza, JAMSHID CHARTPREP 08/13/2025 Telephone [facility] [address] [facility] [place] [address] Aruna Baeza, HOME SERVICE DEMONSTRATOR 08/10/2025 11:30 AM EDT Office Visit [facility] [address] [facility] [place] [address] Aruna Baeza, JAMSHID Major depression, chronic (Primary Dx) 08/10/2025 Travel 08/09/2025 Telephone [facility] [address] [facility] [place] [address] Aruna Baeza, JAMSHID Chart Prep 08/03/2025 Refill [facility] [address] [facility] [place] [address] Aruna Baeza, HOME SERVICE DEMONSTRATOR 07/25/2025 Refill [facility] [address] [facility] [place] [address] Aruna Baeza, HOME SERVICE DEMONSTRATOR 07/09/2025 Telephone [facility] [address] [facility] [place] [address] Aruna Baeza, JAMSHID Med Refill 07/07/2025 Refill [facility] [address] [facility] [place] [address] Aruna Baeza, HOME SERVICE DEMONSTRATOR 06/26/2025 Refill [facility] [address] [facility] [place] [address] Aruna Baeza, HOME SERVICE DEMONSTRATOR 06/25/2025 Refill [facility] [address] [facility] [place] [address] Aruna Baeza, HOME SERVICE DEMONSTRATOR 06/01/2025 4:00 PM EDT Office Visit [facility] [address] [facility] [place] [address] Aruna Baeza, JAMSHID Major depression, chronic (Primary Dx); Persistent depressive disorder 06/01/2025 Travel 05/31/2025 Telephone [facility] [address] [facility] [place] [address] Diana Santos MA Chart Prep 05/25/2025 Refill [facility] [address] [place] [phone] Aruna Baeza NP 05/18/2025 3:15 PM EDT Office Visit [address] [address] Aruna Baeza NP Anxiety (Primary Dx) 05/18/2025 Travel 05/17/[address] [address] Aruna Baeza NP Chart Prep from Last 3 Months Immunizations Immunization Administration Dates Next Due DTaP 09/03/2009, 7,2005,2005 ,2005 DTaP / Hep B / IPV 2005,2005, 005 HPV, Quadrivalent 02/14/2019,02/15/2018 Hep A, Adult 12/19/2013,09/02/2010 Hep B, Adolescent or Pediatric 2005 Hep B, Unspecified 2005 Hep B, adult 04/15/2010,06/04/2006,2005 ,2005 HiB, unspecified 04/18/2007,2005, 5,2005 Hib (HbOC) 2005,2005 Hib (PRP-T) 2005 Influenza, IIV3, injectable 09/09/2019, 5,10/05/2012 Influenza, trivalent, adjuvanted 12/19/2013,110 05/2011,09/02/2010,08/04/2007 MMR 09/03/2009,2006 Meningococcal MPSV4 02/15/2018 Pneumococcal Conjugate PCV 7 2006,12/02/19 06,2005,2005 Polio, Unspecified 09/03/2009,2005, 005,2005 Tdap 02/15/2018 Varicella 09/03/2009,2006 Family History Medical History Relation Name Comments Alcohol abuse Father Bipolar disorder Father Depression Father Drug abuse Mother Passed from [place] g over dose Diabetes Paternal Grandmother Hyperlipidemia Paternal Grandmother Hypertension Paternal Grandmother ADD / ADHD Sister Relation Name Status Comments Father Mother Paternal Grandmother Sister Social History Tobacco Use Types Packs/Day Years Used Date Smoking Tobacco: Never Passive Smoke Exposure: Never Smokeless Tobacco: Former Tobacco Cessation:Counseling Given: Not Answered Comments:Reports Vaping continuously Alcohol Use Standard Drinks/Week Comments Never 0 [...] not to disclose 2022 9:07 AM EDT Last Filed Vital Signs Vital Sign Reading Time Taken Comments Blood Pressure 118/80 08/17/2025 11:14 AM EDT Pulse 71 08/17/2025 11:14 AM EDT Temperature 36.7 C (98 F) 08/17/2025 11:14 AM EDT Respiratory Rate 20 08/17/2025 11:14 AM EDT Oxygen Saturation 100% 08/10/2025 11:30 AM EDT Inhaled Oxygen Concentration - - Weight 64.4 kg (142 lb) 08/17/2025 11:14 AM EDT Height 175.3 cm (5' 9 ) 08/17/2025 11:14 AM EDT Body Mass Index 20.97 08/17/2025 11:14 AM EDT Plan of Treatment Health Maintenance Due Date Last Done Comments Family Planning (PISQ) 2020 Meningococcal B Vaccine (1 of 2 - Standard) 2021 COVID-19 Vaccine (1 - season) 2025 Influenza Vaccine (#1) 2025 9, 09/25/2015, 12/19/2013, Additional history exists Depression Monitoring 02/15/2026 08/17/2025, 025 SDOH Screening 03/16/2026 03/16/2025 Alcohol/Substance Use Screening 03/26/2026 03/26/2025 Chlamydia and Gonorrhea Screening 03/26/2026 03/26/2025 Disability Screening 03/26/2026 03/26/2025 Tobacco Screening 08/10/2026 08/10/2025 DTaP/Tdap/Td Vaccines (7 - Td or Tdap) 02/16/2028 02/15/2018, 09/03/2009, 04/18/2007, Additional history exists Zoster Vaccines (1 of 2) 2055 RSV Patients and Patients Aged 60 years or older (1 - 1-dose 75+ series) 2080 Pneumococcal Vaccine: Pediatrics (0 to 5 Years) and At-Risk Patients (6 to 49) Years Aged Out 2006, 2005, 2005, Additional history exists No longer eligible based on patient's age to complete this topic HIB Vaccines Completed 04/18/2007, 05/2006, 2005, Additional history exists IPV Vaccines Completed 09/03/2009, 05/2006, 2005, Additional history exists Hepatitis B Vaccines Completed 04/15/2010, 06/04/2006, 2005, Additional history exists Hepatitis A Vaccines Completed 12/19/2013, 09/02/20 10 Meningococcal Vaccine Aged Out 02/15/2018 No catherine tejinder eligible based on patient's age to complete this topic HPV Vaccines Completed 02/14/2019, 02/15/2018 HIV Screening Completed 03/26/2025 Hepatitis C Screening Completed 03/26/2025 RSV under 20 months Aged Out No longe r eligible based on patient's age to complete this topic Rotavirus Vaccines Aged Out No longer eligible based on patient's age to complete this topic Procedures Procedure Name Priority Date/Time Associated Diagnosis Comments URINALYSIS, COMPLETE Routine 08/17/2025 2:12 PM EDT DRUG MONITOR, PANEL 1, SCREEN, URINE Routine 08/17/2025 2:12 PM EDT ETHANOL Routine 08/17/2025 1:22 PM EDT BASIC METABOLIC PANEL Routine 08/17/2025 1:22 PM EDT HEPATIC FUNCTION PANEL Routine 08/17/2025 1:22 PM EDT COVID-19 ID NOW (PATEL) Routine 08/17/2025 1:22 PM EDT CBC WITH AUTO DIFFERENTIAL Routine 08/17/2025 1:22 PM EDT INFLUENZA A B2 ID NOW (PATEL) Routine 08/17/2025 1:22 PM EDT HEPATITIS C AB W/REFL TO HCV RNA, QN, PCR Routine 03/26/2025 3:24 PM EDT Adult wellness visit HIV 1/2 ANTIGEN/ANTIBODY, FOURTH GENERATION W/RFL Routine 03/26/2025 3:24 PM EDT Adult wellness visit CHLAMYDIA/N. GONORRHOEAE RNA, TMA, UROGENITAL Routine 03/26/2025 3:24 PM EDT Adult wellness visit from Last 3 Months or Most Recently Relevant to Health Maintenance Results * (ABNORMAL) Drug Monitoring, Panel 1, Screen, Urine (08/17/2025 2:12 PM EDT) Opiate Screen Urine Not Detected Not Detect [facility] Comment:Opiate cut-off is 30 0 ng/mL.Positive results are unconfirmed and should not be used fornon-medical purposes. Barbiturates, Urine Not Detected Not Detect [facility] Comment:Barbiturate cut-off is 200 ng/mL.Positive results are unconfirmed and should not be used fornon-medical purposes. Phencyclidine Screen Urine Not Detected Not Detect [facility] Comment:Phencyclidine cut-of f is 25 ng/mL.Positive results are unconfirmed and should not be used fornon-medical purposes. Amphetamine Screen Urine Not Detected Not Detect [facility] Comment:Amphetamine cut-off is 1000 ng/mL.Positive results are unconfirmed and should not be used fornon-medical purposes. Benzodiazepines Screen Urine Not Detected Not Detect [facility] Comment:Benzodiazepine cut-o ff is 200 ng/mL.Positive results are unconfirmed and should not be used fornon-medical purposes. Cocaine Screen Urine Not Detected Not Detect [facility] Comment:Cocaine cut-off is 3 00 ng/mL.Positive results are unconfirmed and should not be used fornon-medical purposes. Cannabinoid Screen Urine POSITIVE(A) Not Detect [facility] Comment:Cannabinoid cut-off is 50 ng/mL.Positive results are unconfirmed and should not be used fornon-medical purposes. Methadone Screen, Urine Not Detected Not Detect ng/mL [facility] Comment:Methadone cut-off is 300 ng/mL.Positive results are unconfirmed and should not be used fornon-medical purposes. FENTANYL URINE Not Detected Not Detect [facility] Comment:Fentanyl cut-off is 1 ng/mL.Positive results are unconfirmed and should not be used fornon-medical purposes. Oxycodone Urine Screen Not Detected Not Detect ng/mL [facility] Comment:Oxycodone cut-off is 100 ng/mL.Positive results are unconfirmed and should not be used fornon-medical purposes. Buprenorphine Screen Not Detected Not Detect ng/mL [facility] Comment:Buprenorphine cut-of f is 5 ng/mL.Positive results are unconfirmed and should not be used fornon-medical purposes. 08/17/2025 2:12 PM EDT 08/17/2025 2:17 PM EDT us Generic External Data Provider LAB URINE ORDERAB LES Final Result Performing Organization Address City/[facility]/ZIP Co de Phone Number [facility] [address] [place] [phone] * (ABNORMAL) Urinalysis Complete (08/17/2025 2:12 PM EDT) Color Urine Yellow [facility] Appearance Urine Clear [facility] PH 6.0 5.0 - 9.0 [facility] Glucose Urine UA Negative Negative mg/dL [facility] Urine Blood Negative Negative [facility] Specific Robards - Urine 1.020 1.005 - 1.025 [facility] Urine Protein 30 (1+)(A) Neg-Trace mg/dL [facility] Urine Ketones Negative Negative mg/dL [facility] Nitrite Urine Negative Negative [facility] Leukocyte Esterase Urine Negative Negative [facility] RBC Urine 0-2 0 - 2 /HPF [facility] Urine WBC 0-5 0 - 5 /HPF [facility] Urine Squamous Epithelial Cell 0-2 0 - 2 /HPF [facility] Urine Bacteria None Seen None Seen [facility] Hyaline Casts, Urine 0-2 0 - 2 /LPF [facility] 08/17/2025 2:12 PM EDT 08/17/2025 3:13 PM EDT us Generic External Data Provider LAB URINE ORDERAB LES Final Result Performing Organization Address City/[facility]/ZIP Co de Phone Number [facility] [address] [place] [address] [phone] * Influenza A B2 ID NOW (Patel) (08/17/2025 1:22 PM EDT) [id number] [facility] Influenza A Negative Negative [facility] Influenza B2 Negative Negative [facility] Influenza A B2 Note See Note [facility] Comment:The Patel ID NOW In [...] LAB MICROBIOLOGY - GENERAL ORDERABLES Final Result [facility] [address] [place] [phone] * COVID-19 ID NOW (PATEL) (08/17/2025 1:22 PM EDT) [facility] SERIAL# [id number] [facility] COVID-19 TEST Negative Negative [facility] COVID-19 NOTE See Note [facility] Comment: Results are for the identification of SARS-CoV2 RNA. TheSARS-CoV2 RNA is generally detectable in respiratory samplesduring the acute phase of infection. Positive results areindicative of the presence of SARS-CoV-2 RNA; clinicalcorrelation with patient history and other diagnosticinformation is necessary to determine patient infectionstatus. Positive results do not rule out bacterial infectionor co- infection with other viruses.Testing facilities within the [facility] and itsterritories are required to report all [...] use by authorized laboratories.Testing performed on the [employer] ID NOW utilizing NAAT. 08/17/2025 1:22 PM EDT 08/17/2025 1:26 PM EDT damntheradio External Data Provider LAB MOLECULAR JANIE GNOSTICS ORDERABLES Final Result Performing Organization Address [facility]/RUST Co de Phone Number [facility] [address] [place] [phone] * Ethanol (08/17/2025 1:22 PM EDT) Pathologist [facility] ETHANOL (MG/DL) IN SER/PLAS <10 mg/dL [facility] Comment:Serum/plasma ethanol results are to be used formedical/treatment purposes only. 08/17/2025 1:22 PM EDT 08/17/2025 1:26 PM EDT Generic External Data Provider LAB BLOOD ORDERAB LES Final Result Performing Organization Address [facility] Co de Phone Number [facility] [address] [place] [phone] * (ABNORMAL) CBC auto differential (08/17/2025 1:22 PM EDT) [facility] White Blood Count 6.1 4.8 - 10.8 X10*3/uL [facility] Red Blood Count 4.15(L) 4.60 - 5.80 X10*6/uL [facility] Hemoglobin 13.4(L) 14.0 - 18.0 g/dl [facility] Hematocrit 37.9(L) 42.0 - 52.0 % [facility] Mean Corpuscular Volume 91.3 80.0 - 98.0 fL [facility] Mean Corpuscular Hemoglobin 32.3 27.0 - 33.0 pg [facility] Mean Corpuscular HGB Conc 35.4 31.0 - 36.0 g/dl [facility] Red Cell Distribution Width 12.4 11.0 - 16.0 % [facility] Platelet Count 163 160 - 400 X10*3/uL [facility] Mean Platelet Volume 8.9(L) 9.4 - 12.4 fL [facility] Neutrophils Percent Auto 54.7 45 - 73 % [facility] Imm Gran Pct Auto 0.2 0.0 - 0.4 % [facility] Lymphocytes Percent Auto 36.8 20 - 40 % [facility] Monocytes Percent Auto 7.3 2 - 11 % [facility] Eosinophils Percent Auto 0.7 0 - 4 % [facility] Basophils Percent Auto 0.3 0 - 2 % [facility] NRBC Pct Auto 0.0 0.0 - 0.2 /100WBC [facility] Neutrophils Absolute Auto 3.4 2.0 - 8.3 x10*3/uL [facility] Imm Gran Abs Auto 0.01 0.00 - 0.03 X10*3/uL [facility] Lymphocytes Absolute Auto 2.3 1.2 - 4.9 X10*3/uL [facility] Monocytes Absolute Auto 0.5 0.1 - 1.2 X10*3/uL [facility] Eosinophils Absolute Auto 0.0 0.0 - 0.4 X10*3/uL [facility] Basophils Absolute Auto 0.0 0.0 - 0.2 X10*3/uL [facility] NRBC Abs Auto 0.000 0.0 - 0.012 X10*3/uL [facility] 08/17/2025 1:22 PM EDT 08/17/2025 1:26 PM EDT us Generic External Data Provider LAB BLOOD ORDERAB LES Final Result Performing Organization Address [facility] Co de Phone Number [facility] [address] [place] [phone] * (ABNORMAL) Hepatic Function Panel (08/17/2025 1:22 PM EDT) Bilirubin, Total 0.3 0.0 - 1.0 mg/dL [facility] Bilirubin, Direct 0.1 0.0 - 0.5 mg/dL [facility] Aspartate Amino Transferase 24 5 - 37 U/L [facility] Alanine Aminotransferase 18 0 - 40 U/L [facility] Total Protein 7.3 6.5 - 8.0 g/dL [facility] Albumin Level 5.1(H) 3.5 - 5.0 g/dL [facility] Alkaline Phosphatase 82 39 - 117 U/L [facility] 08/17/2025 1:22 PM EDT 08/17/2025 1:26 PM EDT Generic External Data Provider LAB BLOOD ORDERAB LES Final Result Performing Organization Address [facility] de Phone Number [facility] [address] [place] [phone] * (ABNORMAL) Basic Metabolic Panel (08/17/2025 1:22 PM EDT) Sodium 141 135 - 145 mmol/L [facility] Potassium 4.3 3.3 - 5.1 mmol/L [facility] Chloride 108 96 - 108 mmol/L [facility] Carbon Dioxide 27 22 - 29 mmol/L [facility] Anion Gap 10(L) 12 - 20 [facility] Urea Nitrogen (BUN) 12 9 - 16 mg/dL [facility] Creatinine, Serum 0.86 0.5 - 1.4 mg/dL [facility] Creatinine Clr Calc Pharmacy 122.5 [facility] Comment:eGFR (calculated fro m the MDRD study equation) and eCrCl(calculated from the Cockcroft-Gault equation) are based ondifferent parameters and may not yield comparable results.If eCrCl result is absurd, please check patient'sheight/weight. Estimated Glomerular Filt Rate >60 [facility] Comment:Chronic Kidney Disea se: Estimated GFR < 60 mL/min/[id number] Kidney Disease: Estimated GFR < 15 mL/min/1.73m2 Glucose 77 60 - 115 mg/dL [facility] Calcium 9.6 8.4 - 10.2 mg/dL [facility] 08/17/2025 1:22 PM EDT 08/17/2025 1:26 PM EDT us Generic External Data Provider LAB BLOOD ORDERAB LES Final Result Performing Organization Address [facility]/ZIP Co de Phone Number [facility] [address] [place] [phone] * Hepatitis C Antibody with Reflex to HCV, RNA, Quantitative, Real-Time PCR (03/26/2025 3:24 PM EDT) Pathologist [facility] Hepatitis C Antibody Nonreactive Nonreactive [facility] Comment:Antibodies to HCV no t detected; does not exclude early acuteHCV infection. Blood Venous blood specimen / Unknown 03/26/2025 3:24 PM EDT 03/26/2025 4:00 PM EDT us Gemini Lambert [facility] LAB BLOOD ORDERABLES Final Res ult Performing Organization Address [facility]/ZIP Co de Phone Number [facility] [address] [place] [address] [phone] * Chlamydia/N. Gonorrhoeae RNA, TMA, Urine (03/26/2025 3:24 PM EDT) Pathologist [facility] CT PCR NOT DETECTED Not Detect. [facility] Comment:A not detected test result does not exclude the possibilityof infection because test results can be affected byimproper specimen collection, concurrent antibiotic therapy,or the number of organisms in the specimen which may bebelow the sensitivity of the test. As with many diagnostictests, results from the Xpert CT/NG assay should beinterpreted in conjunction with other laboratory andclinical data available to the clinician.Xpert CT/NG performance has not been evaluated in patientsless than 14 years of age. The assay should not be used forthe evaluationof suspected sexual abuse or for other medico-legalindications. Additional testing is recommended in anycircumstance when false positive or false negative resultscould lead to adverse medical, social or psychologicalconsequences. NG PCR NOT DETECTED Not Detect. [facility] Comment:A not detected test result does not exclude the possibilityof infection because test results can be affected byimproper specimen collection, concurrent antibiotic therapy,or the number of organisms in the specimen which may bebelow the sensitivity of the test. As with many diagnostictests, results from the Xpert CT/NG assay should beinterpreted in conjunction with other laboratory andclinical data available to the clinician.Xpert CT/NG performance has not been evaluated in patientsless than 14 years of age. The assay should not be used forthe evaluationof suspected sexual abuse or for other medico-legalindications. Additional testing is recommended in anycircumstance when false positive or false negative resultscould lead to adverse medical, social or psychologicalconsequences. Urine (Urine, Random) 03/26/2025 3:24 PM EDT 03/26/2025 4:01 PM EDT Narrative [facility] - 03/27/2025 11:08 AM EDT Urine us [facility] MICROBIOLOGY - GENERAL ORD ERABLES Final Result [facility] [address] [place] [phone] * HIV-1/2 Antigen and Antibodies, Fourth Generation, with Reflexes (03/26/2025 3:24 PM EDT) HIV AB/AG Nonreactive Nonreactive [facility] Comment:HIV-1 p24 Ag and/or HIV-1/HIV-2 Ab not detected.A test result that is nonreactive does not exclude thepossibility of exposure to or infection with HIV-1 and/orHIV-2. Nonreactive results in this assay for individualswith prior exposure to HIV-1 and/or HIV-2 may be due toantigen and antibody levels that are below the limit ofdetection of this assay.The [employer] HIV Ag/Ab Combo assay result andsupplemental assay results should be interpreted inconjunction with the patient's clinical presentation,history and other laboratory results. If the results areinconsistent with clinical evidence, additional testing issuggested to confirm the result. Blood Venous blood specimen / Unknown 03/26/2025 3:24 PM EDT 03/26/2025 4:00 PM EDT us [facility]ini [facility] BLOOD ORDERABLES Final Res ult [facility] [address] [place] [phone] from Last 3 Months or Most Recently Relevant to Health Maintenance Insurance [employer] C3 [employer] Care Teams Slip Presser Relationship Specialty Start Date End Date Aruna Baeza NP [address] [place] [phone] PCP - General Family Medicine 12/26/24
--- NOTE | 2025-08-17 16:32 | PC.NURSE ---
Nurse to nurse report given at this time to M3 RN
[2025-08-17 16:40] VITALS: BP 132/85; PULSE 60; TEMP 36.8; O2SAT 100
--- NOTE | 2025-08-17 16:51 | PC.NURSE ---
Security at bedside with M3 RN, pt paperwork and belongings handed over to receiving RN. Pt left unit via WC at this time
[2025-08-17 17:00] VITALS: BMI 17.7
--- NOTE | 2025-08-17 18:01 | PC.NURSE ---
Pt declined flu vaccine at this time
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
[2025-08-17 19:15] VITALS: BP 122/76; PULSE 62; RESP 16; TEMP 37.4; O2SAT 99
[2025-08-18 09:15] VITALS: BP 121/77; PULSE 80; RESP 16; TEMP 36.8; O2SAT 100
[2025-08-18] MEDS: Nicotine 21 MG PATCH.TD24 TRANSDERMA (09:54)
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
[2025-08-18 19:38] VITALS: BP 137/100; PULSE 87; RESP 16; TEMP 37.6; O2SAT 96
[2025-08-18 20:05] VITALS: BP 131/74; TEMP 37.3
[2025-08-19 08:00] VITALS: BP 120/64; PULSE 61; RESP 18; TEMP 36.6; O2SAT 98
[2025-08-19] MEDS: Nicotine 21 MG PATCH.TD24 TRANSDERMA (08:35)
--- NOTE | 2025-08-19 13:12 | HO.PSYCHPN ---
Subjective Subjective Date of Service: 08/19/25 Reason For Visit: Crisis Subjective Notes: 3 Day Interim History: Active on unit. attending groups. Patient continues to reports feeling depressed ; pt stated, I just keep thinking about my mom if I'm not listening to music . Patient states his suicidal thoughts went away but come and go . denies SI/HI/VH/AH. denies any side effects from medications. continue tx plan. Medication Compliance: Yes Side effects from medications: No Attending Groups: Yes Mental Status Exam Mental Status Exam Narrative: Pt is alert and oriented; behavior is cooperative and calm; dressed in casual attire; mood is described as depressed ; eye contact appropriate; Speech is normal rate, volume and not pressured; thought process is organized; Thought content is on tx; denies HI/VH/AH. Patient reports suicidal thoughts come and go . Diagnostics Vital Signs (24Hr): Vital Signs - 24 hr 08/18/25 19:38 08/18/25 20:05 08/19/25 08:00 Temperature 99.7 F 99.2 F 97.9 F Pulse Rate 87 61 Respiratory Rate 16 18 Blood Pressure 137/100 H 131/74 120/64 Pulse Oximetry 96 98 Oxygen Delivery Method Room Air Room Air BMI result Body Mass Index 17.7 Labs 08/17/25 13:22 08/17/25 13:22 Labs: Laboratory Results - last 48 hr 08/17/25 08/17/25 13:22 14:12 WBC 6.1 RBC 4.15 L Hgb 13.4 L Hct 37.9 L MCV 91.3 MCH 32.3 MCHC 35.4 RDW 12.4 Plt Count 163 MPV 8.9 L Immature Gran % (Auto) 0.2 Neut % (Auto) 54.7 Lymph % (Auto) 36.8 [place] % (Auto) 7.3 Eos % (Auto) 0.7 Baso % (Auto) 0.3 Lymph # (Auto) 2.3 [place] # (Auto) 0.5 Eos # (Auto) 0.0 Baso # (Auto) 0.0 Abs Immat Gran (auto) 0.01 Absolute Neuts (auto) 3.4 Absolute Nucleated RBC 0.000 Nucleated RBC % (auto) 0.0 Sodium 141 Potassium 4.3 Chloride 108 Carbon Dioxide 27 Anion Gap 10 L BUN 12 Creatinine 0.86 Estim Creat Clear Calc 122.5 Estimated GFR > 60 Random Glucose 77 Calcium 9.6 Total Bilirubin 0.3 Direct Bilirubin 0.1 AST 24 ALT 18 Alkaline Phosphatase 82 Total Protein 7.3 Albumin 5.1 H Urine Color Yellow Urine Appearance Clear Urine pH 6.0 Ur Specific [place] 1.020 Urine Protein 30 (1+) H Urine Glucose (UA) Negative Urine Ketones Negative Urine Blood Negative Urine Nitrite Negative Ur Leukocyte Esterase Negative Urine RBC 0-2 Urine WBC 0-5 Ur Squamous Epith Cells 0-2 Urine Bacteria None Seen Hyaline Casts 0-2 Urine Opiates Screen Not Detected Ur Buprenorphine Scrn Not Detected Ur Oxycodone Screen Not Detected Urine Methadone Screen Not Detected Urine Fentanyl Screen Not Detected Ur Barbiturates Screen Not Detected Ur Phencyclidine Scrn Not Detected Ur Amphetamines Screen Not Detected U Benzodiazepines Scrn Not Detected Urine Cocaine Screen Not Detected U Marijuana (THC) Screen POSITIVE H Ethyl Alcohol < 10 COVID-19 (FLORI) Negative COVID-19 Clin Com See Note Influenza Type A (JAN) Negative Influenza Type B (JAN) Negative Influenza A & B Note See Note Medications Medications Current Medications Acetaminophen (Acetaminophen 325 Mg Tablet) 650 mg PO Q6H PRN PRN Reason: Headache/Pain, Scale 1-10 Last Admin: 08/18/25 20:18 Dose: 650 mg Al Hydroxide/Mg Hydroxide (Magnesium Hydrox/Alum Hydrox 30 Ml Oral.Susp) 30 ml PO Q6H PRN PRN Reason: Heartburn/Nausea Hydroxyzine HCl (Hydroxyzine Hcl 25 Mg Tablet) 25 mg PO Q6H PRN PRN Reason: mild anxiety Last Admin: 08/18/25 10:09 Dose: 25 mg Ibuprofen (Ibuprofen 600 Mg Tablet) 600 mg PO Q8H PRN PRN Reason: Pain, Moderate(Pain Scale 4-6) Last Admin: 08/19/25 08:33 Dose: 600 mg Lamotrigine (Lamotrigine 25 Mg Tablet) 50 mg PO DAILY YOLANDA Last Admin: 08/19/25 08:32 Dose: 50 mg Lorazepam (Lorazepam 0.5 Mg Tablet) 0.5 mg PO DAILY PRN PRN Reason: Anxiety Last Admin: 08/19/25 08:39 Dose: 0.5 mg Magnesium Hydroxide (Milk Of Magnesia 30 Ml Oral.Susp) 30 ml PO DAILY PRN PRN Reason: Constipation Nicotine (Nicotine 21 Mg Patch.Td24) 21 mg TRANSDERMA DAILY YOLANDA Last Admin: 08/19/25 08:35 Dose: 21 mg Nicotine Polacrilex (Nicotine Polacrilex 2 Mg Gum) 4 mg BUCCAL Q2H PRN PRN Reason: Nicotine Cravings Last Admin: 08/18/25 17:54 Dose: 4 mg Ondansetron HCl (Ondansetron Odt 8 Mg Tab.Rapdis) 8 mg TRANSLINGU Q12H PRN PRN Reason: Nausea and Vomiting Last Admin: 08/18/25 06:39 Dose: 8 mg Quetiapine Fumarate (Quetiapine Fumarate 50 Mg Tablet) 50 mg PO BEDTIME PRN PRN Reason: Insomnia Last Admin: 08/18/25 20:20 Dose: 50 mg Sertraline HCl (Sertraline Hcl 50 Mg Tablet) 50 mg PO DAILY [facility] Last Admin: 08/19/25 08:32 Dose: 50 mg Trazodone HCl (Trazodone Hcl 50 Mg Tablet) 50 mg PO BEDTIME MRX1 PRN PRN Reason: Insomnia Last Admin: 08/18/25 20:20 Dose: 50 mg Allergies Allergies Allergy/AdvReac Type Severity Reaction Status Date / Time No Known Allergies Allergy Verified 08/17/25 12:40 Assessment & Plan Assessment & Plan (1) MDD (major depressive disorder), recurrent episode: Status: Acute Code(s): F33.9 - Major depressive disorder, recurrent, unspecified (2) PTSD (post-traumatic stress disorder): Status: Acute Code(s): F43.10 - Post-traumatic stress disorder, unspecified Plan Patient is a 20-year-old male with history of MDD and PTSD who presented to ER due to suicidal ideation with a plan to jump off a bridge secondary to increased depression. Plan: CV 15 minute safety checks continue home medications obtain collateral encourage groups ? referral to [facility] Discharge planning 08/19: Active on unit. attending groups. Patient continues to reports feeling depressed ; pt stated, I just keep thinking about my mom if I'm not listening to music . Patient states his suicidal thoughts went away but come and go . denies SI/HI/VH/AH. denies any side effects from medications. continue tx plan. Patient educated on: diagnosis, medication risk/benefits and therapeutic strategies Reason for continued inpatient stay Substantial Risk for: harm to self and med/psych decompensation Time Spent With Patient Time: Total time managing care of this patient today ____ minutes.
[2025-08-19] MEDS: Lidocaine 4 % Patch ADH..PATCH 1 PATCH TRANSDERMA (17:15)
[2025-08-19 21:12] VITALS: BP 139/85; PULSE 58; RESP 16; TEMP 36.9; O2SAT 98
[2025-08-20 08:00] VITALS: BP 125/71; PULSE 56; RESP 18; TEMP 36.9; O2SAT 99
[2025-08-20 08:02] LABS: Alanine Aminotransferase 21 U/L (0-40); Albumin Level 5.2 g/dL (3.5-5.0); Alkaline Phosphatase 84 U/L (39-117); Anion Gap 13 (12-20); Aspartate Amino Transferase 34 U/L (5-37); Blood Urea Nitrogen 17 mg/dL (9-16); Calcium 9.7 mg/dL (8.4-10.2); Carbon Dioxide 26 mmol/L (22-29); Chloride 107 mmol/L (96-108); Cholesterol 200 mg/dL (<200); Creatinine Clr Calc Pharmacy 115.7; Estimated Glomerular Filt Rate > 60; HDL Cholesterol 40 mg/dL (>40); Potassium 4.3 mmol/L (3.3-5.1); Sodium 142 mmol/L (135-145); Total Protein 7.7 g/dL (6.5-8.0); Triglycerides 90 mg/dL (<150)
[2025-08-20] MEDS: Nicotine 21 MG PATCH.TD24 TRANSDERMA (08:35)
--- NOTE | 2025-08-20 10:03 | HO.PSYCHPN ---
Subjective Subjective Date of Service: 08/20/25 Reason For Visit: Crisis Subjective Notes: 3 Day Interim History: Active on unit. attending groups. keeping to self. 3 day notice up on 08/22/25. Patient continues to reports feeling depressed ; pt stated, I'm always thinking about my mom. I try to distract myself with exercising and music . Patient report he is considering joining the [employer] so he can play basketball and swim . denies SI/HI/VH/AH. Continue tx plan. Medication Compliance: Yes Side effects from medications: No Attending Groups: Yes Mental Status Exam Mental Status Exam Narrative: Pt is alert and oriented; behavior is cooperative and calm; dressed in casual attire; mood is described as depressed ; eye contact appropriate; Speech is normal rate, volume and not pressured; thought process is organized; Thought content is on discharge; denies SI/HI/VH/AH. Diagnostics Vital Signs (24Hr): Vital Signs - 24 hr 08/19/25 21:12 08/20/25 08:00 Temperature 98.5 F 98.5 F Pulse Rate 58 56 Respiratory Rate 16 18 Blood Pressure 139/85 125/71 Pulse Oximetry 98 99 Oxygen Delivery Method Room Air Room Air BMI result Body Mass Index 17.7 Labs 08/17/25 13:22 08/20/25 07:22 Labs: Laboratory Results - last 48 hr 08/20/25 07:22 Sodium 142 Potassium 4.3 Chloride 107 Carbon Dioxide 26 Anion Gap 13 BUN 17 H Creatinine 0.90 Estim Creat Clear Calc 115.7 Estimated GFR > 60 Random Glucose 81 Estimat Average Glucose 88 Hemoglobin A1c % 4.7 Calcium 9.7 Total Bilirubin 0.5 AST 34 ALT 21 Alkaline Phosphatase 84 Total Protein 7.7 Albumin 5.2 H Triglycerides 90 Cholesterol 200 H LDL Cholesterol, Calc 142 H HDL Cholesterol 40 L Medications Medications Current Medications Acetaminophen (Acetaminophen 325 Mg Tablet) 650 mg PO Q6H PRN PRN Reason: Headache/Pain, Scale 1-10 Last Admin: 08/20/25 09:23 Dose: 650 mg Al Hydroxide/Mg Hydroxide (Magnesium Hydrox/Alum Hydrox 30 Ml Oral.Susp) 30 ml PO Q6H PRN PRN Reason: Heartburn/Nausea Hydroxyzine HCl (Hydroxyzine Hcl 25 Mg Tablet) 25 mg PO Q6H PRN PRN Reason: mild anxiety Last Admin: 08/19/25 23:33 Dose: 25 mg Ibuprofen (Ibuprofen 600 Mg Tablet) 600 mg PO Q8H PRN PRN Reason: Pain, Moderate(Pain Scale 4-6) Last Admin: 08/19/25 22:28 Dose: 600 mg Lamotrigine (Lamotrigine 25 Mg Tablet) 50 mg PO DAILY [facility] Last Admin: 08/20/25 08:34 Dose: 50 mg Lidocaine (Lidocaine 4 % Patch Adh..Patch) 1 patch TRANSDERMA DAILY PRN; Protocol PRN Reason: Pain, Moderate(Pain Scale 4-6) Last Admin: 08/19/25 17:15 Dose: 1 patch Lorazepam (Lorazepam 0.5 Mg Tablet) 0.5 mg PO DAILY PRN PRN Reason: Anxiety Last Admin: 08/19/25 08:39 Dose: 0.5 mg Magnesium Hydroxide (Milk Of Magnesia 30 Ml Oral.Susp) 30 ml PO DAILY PRN PRN Reason: Constipation Nicotine (Nicotine 21 Mg Patch.Td24) 21 mg TRANSDERMA DAILY [facility] Last Admin: 08/20/25 08:35 Dose: 21 mg Nicotine Polacrilex (Nicotine Polacrilex 2 Mg Gum) 4 mg BUCCAL Q2H PRN PRN Reason: Nicotine Cravings Last Admin: 08/18/25 17:54 Dose: 4 mg Olanzapine (Olanzapine 5 Mg Tablet) 5 mg PO Q4H PRN PRN Reason: agitation Last Admin: 08/19/25 23:33 Dose: 5 mg Ondansetron HCl (Ondansetron Odt 8 Mg Tab.Rapdis) 8 mg TRANSLINGU Q12H PRN PRN Reason: Nausea and Vomiting Last Admin: 08/18/25 06:39 Dose: 8 mg Quetiapine Fumarate (Quetiapine Fumarate 50 Mg Tablet) 50 mg PO BEDTIME PRN PRN Reason: Insomnia Last Admin: 08/19/25 21:11 Dose: 50 mg Sertraline HCl (Sertraline Hcl 50 Mg Tablet) 50 mg PO DAILY [facility] Last Admin: 08/20/25 08:34 Dose: 50 mg Trazodone HCl (Trazodone Hcl 50 Mg Tablet) 50 mg PO BEDTIME MRX1 PRN PRN Reason: Insomnia Last Admin: 08/19/25 23:33 Dose: 50 mg Allergies Allergies Allergy/AdvReac Type Severity Reaction Status Date / Time No Known Allergies Allergy Verified 08/17/25 12:40 Assessment & Plan Assessment & Plan (1) MDD (major depressive disorder), recurrent episode: Status: Acute Code(s): F33.9 - Major depressive disorder, recurrent, unspecified (2) PTSD (post-traumatic stress disorder): Status: Acute Code(s): F43.10 - Post-traumatic stress disorder, unspecified Plan Patient is a 20-year-old male with history of MDD and PTSD who presented to ER due to suicidal ideation with a plan to jump off a bridge secondary to increased depression. Plan: CV 15 minute safety checks continue home medications obtain collateral encourage groups ? referral to [facility] Discharge planning 08/19: Active on unit. attending groups. Patient continues to reports feeling depressed ; pt stated, I just keep thinking about my mom if I'm not listening to music . Patient states his suicidal thoughts went away but come and go . denies SI/HI/VH/AH. denies any side effects from medications. continue tx plan. 08/20: Active on unit. attending groups. keeping to self. 3 day notice up on 08/22/25. Patient continues to reports feeling depressed ; pt stated, I'm always thinking about my mom. I try to distract myself with exercising and music . Patient report he is considering joining the [employer] so he can play basketball and swim . denies SI/HI/VH/AH. Continue tx plan. Patient educated on: diagnosis, medication risk/benefits and therapeutic strategies Reason for continued inpatient stay Substantial Risk for: med/psych decompensation Time Spent With Patient Time: Total time managing care of this patient today _20___ minutes.
[2025-08-20 19:25] VITALS: BP 160/90; PULSE 68; RESP 16; TEMP 36.7; O2SAT 98
[2025-08-20] MEDS: Lidocaine 4 % Patch ADH..PATCH 1 PATCH TRANSDERMA (20:43)
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
[2025-08-21 08:00] VITALS: BP 147/65; PULSE 95; RESP 20; TEMP 36.3; O2SAT 98
--- NOTE | 2025-08-21 09:26 | HO.PSYCHPN ---
Subjective Subjective Date of Service: 08/21/25 Reason For Visit: Crisis Subjective Notes: 3 Day Interim History: Retracted 3 day notice and signed another one, which is now up on 08/24/25. Patient continues to reports feeling depressed ; pt stated, I keep having flash backs and I'm not sleeping well last night. I feel like the medications are helping a little bit . Discussed changing Seroquel to scheduled at night rather than PRN; pt agreed. Seroquel increased to 75mg PO bedtime. denies SI/HI/VH/AH. Medication Compliance: Yes Side effects from medications: No Attending Groups: Intermittent Mental Status Exam Mental Status Exam Narrative: Pt is alert and oriented; behavior is cooperative and calm; dressed in casual attire; mood is described as depressed ; eye contact appropriate; Speech is normal rate, volume and not pressured; thought process is organized; Thought content is on tx/discharge; denies SI/HI/VH/AH. Diagnostics Vital Signs (24Hr): Vital Signs - 24 hr 08/20/25 19:25 Temperature 98.1 F Pulse Rate 68 Respiratory Rate 16 Blood Pressure 160/90 H Pulse Oximetry 98 Oxygen Delivery Method Room Air BMI result Body Mass Index 17.7 Labs 08/17/25 13:22 08/20/25 07:22 Labs: Laboratory Results - last 48 hr 08/20/25 07:22 Sodium 142 Potassium 4.3 Chloride 107 Carbon Dioxide 26 Anion Gap 13 BUN 17 H Creatinine 0.90 Estim Creat Clear Calc 115.7 Estimated GFR > 60 Random Glucose 81 Estimat Average Glucose 88 Hemoglobin A1c % 4.7 Calcium 9.7 Total Bilirubin 0.5 AST 34 ALT 21 Alkaline Phosphatase 84 Total Protein 7.7 Albumin 5.2 H Triglycerides 90 Cholesterol 200 H LDL Cholesterol, Calc 142 H HDL Cholesterol 40 L Medications Medications Current Medications Acetaminophen (Acetaminophen 325 Mg Tablet) 650 mg PO Q6H PRN PRN Reason: Headache/Pain, Scale 1-10 Last Admin: 08/21/25 09:22 Dose: 650 mg Al Hydroxide/Mg Hydroxide (Magnesium Hydrox/Alum Hydrox 30 Ml Oral.Susp) 30 ml PO Q6H PRN PRN Reason: Heartburn/Nausea Hydroxyzine HCl (Hydroxyzine Hcl 25 Mg Tablet) 25 mg PO Q6H PRN PRN Reason: mild anxiety Last Admin: 08/21/25 09:22 Dose: 25 mg Ibuprofen (Ibuprofen 600 Mg Tablet) 600 mg PO Q8H PRN PRN Reason: Pain, Moderate(Pain Scale 4-6) Last Admin: 08/20/25 21:13 Dose: 600 mg Lamotrigine (Lamotrigine 25 Mg Tablet) 50 mg PO DAILY [facility] Last Admin: 08/21/25 09:04 Dose: 50 mg Lidocaine (Lidocaine 4 % Patch Adh..Patch) 1 patch TRANSDERMA DAILY PRN; Protocol PRN Reason: Pain, Moderate(Pain Scale 4-6) Last Admin: 08/20/25 20:43 Dose: 1 patch Lorazepam (Lorazepam 0.5 Mg Tablet) 0.5 mg PO DAILY PRN PRN Reason: Anxiety Last Admin: 08/21/25 01:24 Dose: 0.5 mg Magnesium Hydroxide (Milk Of Magnesia 30 Ml Oral.Susp) 30 ml PO DAILY PRN PRN Reason: Constipation Nicotine (Nicotine 21 Mg Patch.Td24) 21 mg TRANSDERMA DAILY [facility] Last Admin: 08/21/25 09:19 Dose: Not Given Nicotine Polacrilex (Nicotine Polacrilex 2 Mg Gum) 4 mg BUCCAL Q2H PRN PRN Reason: Nicotine Cravings Last Admin: 08/18/25 17:54 Dose: 4 mg Olanzapine (Olanzapine 5 Mg Tablet) 5 mg PO Q4H PRN PRN Reason: agitation Last Admin: 08/20/25 23:51 Dose: 5 mg Ondansetron HCl (Ondansetron Odt 8 Mg Tab.Rapdis) 8 mg TRANSLINGU Q12H PRN PRN Reason: Nausea and Vomiting Last Admin: 08/20/25 22:27 Dose: 8 mg Quetiapine Fumarate (Quetiapine Fumarate 50 Mg Tablet) 50 mg PO BEDTIME PRN PRN Reason: Insomnia Last Admin: 08/19/25 21:11 Dose: 50 mg Sertraline HCl (Sertraline Hcl 50 Mg Tablet) 50 mg PO DAILY [facility] Last Admin: 08/21/25 09:04 Dose: 50 mg Trazodone HCl (Trazodone Hcl 50 Mg Tablet) 50 mg PO BEDTIME MRX1 PRN PRN Reason: Insomnia Last Admin: 08/20/25 23:51 Dose: 50 mg Allergies Allergies Allergy/AdvReac Type Severity Reaction Status Date / Time No Known Allergies Allergy Verified 08/17/25 12:40 Assessment & Plan Assessment & Plan (1) MDD (major depressive disorder), recurrent episode: Status: Acute Code(s): F33.9 - Major depressive disorder, recurrent, unspecified (2) PTSD (post-traumatic stress disorder): Status: Acute Code(s): F43.10 - Post-traumatic stress disorder, unspecified Plan Patient is a 20-year-old male with history of MDD and PTSD who presented to ER due to suicidal ideation with a plan to jump off a bridge secondary to increased depression. Plan: CV 15 minute safety checks continue home medications obtain collateral encourage groups ? referral to [facility] Discharge planning 08/19: Active on unit. attending groups. Patient continues to reports feeling depressed ; pt stated, I just keep thinking about my mom if I'm not listening to music . Patient states his suicidal thoughts went away but come and go . denies SI/HI/VH/AH. denies any side effects from medications. continue tx plan. 08/20: Active on unit. attending groups. keeping to self. 3 day notice up on 08/22/25. Patient continues to reports feeling depressed ; pt stated, I'm always thinking about my mom. I try to distract myself with exercising and music . Patient report he is considering joining the [employer] so he can play basketball and swim . denies SI/HI/VH/AH. Continue tx plan. 08/21: Retracted 3 day notice and signed another one, which is now up on 08/24/25. Patient continues to reports feeling depressed ; pt stated, I keep having flash backs and I'm not sleeping well last night. I feel like the medications are helping a little bit . Discussed changing Seroquel to scheduled at night rather than PRN; pt agreed. Seroquel increased to 75mg PO bedtime. denies SI/HI/VH/AH. Patient educated on: diagnosis, medication risk/benefits and therapeutic strategies Reason for continued inpatient stay Substantial Risk for: med/psych decompensation Time Spent With Patient Time: Total time managing care of this patient today _20___ minutes.
[2025-08-21] MEDS: Lidocaine 4 % Patch ADH..PATCH 1 PATCH TRANSDERMA (16:58)
[2025-08-21 21:10] VITALS: BP 137/70; PULSE 70; RESP 16; TEMP 37.1; O2SAT 98
[2025-08-22 08:00] VITALS: BP 125/110; PULSE 60; RESP 20; TEMP 36.8; O2SAT 99
[2025-08-22] MEDS: Nicotine 21 MG PATCH.TD24 TRANSDERMA (08:25)
--- NOTE | 2025-08-22 09:04 | P.PNPSI_ITS ---
Subjective Subjective Date of Service: 08/22/25 Reason For Visit: Crisis Subjective Notes: 3 Day Interim History: 3 day notice up on 08/24/25. Active on unit. social with peers. observed laughing and joking. Patient reports he is starting to feel better and feels better than when I got here . denies SI/HI/VH/AH. Patient reports he slept well last night with the increase in Seroquel. Per nursing, slept 8 hours last night. continue tx plan. Medication Compliance: Yes Side effects from medications: No Attending Groups: Yes Mental Status Exam Mental Status Exam Narrative: Pt is alert and oriented; behavior is cooperative and calm; dressed in casual attire; mood is described as depressed ; eye contact appropriate; Speech is normal rate, volume and not pressured; thought process is organized; Thought content is on tx/discharge; denies SI/HI/VH/AH. Diagnostics Vital Signs (24Hr): Vital Signs - 24 hr 08/21/25 21:10 Temperature 98.7 F Pulse Rate 70 Respiratory Rate 16 Blood Pressure 137/70 Pulse Oximetry 98 Oxygen Delivery Method Room Air BMI result Body Mass Index 17.7 Labs 08/17/25 13:22 08/20/25 07:22 Medications Medications Current Medications Acetaminophen (Acetaminophen 325 Mg Tablet) 650 mg PO Q6H PRN PRN Reason: Headache/Pain, Scale 1-10 Last Admin: 08/21/25 21:11 Dose: 650 mg Al Hydroxide/Mg Hydroxide (Magnesium Hydrox/Alum Hydrox 30 Ml Oral.Susp) 30 ml PO Q6H PRN PRN Reason: Heartburn/Nausea Hydroxyzine HCl (Hydroxyzine Hcl 25 Mg Tablet) 25 mg PO Q6H PRN PRN Reason: mild anxiety Last Admin: 08/21/25 21:11 Dose: 25 mg Ibuprofen (Ibuprofen 600 Mg Tablet) 600 mg PO Q8H PRN PRN Reason: Pain, Moderate(Pain Scale 4-6) Last Admin: 08/21/25 16:57 Dose: 600 mg Lamotrigine (Lamotrigine 25 Mg Tablet) 50 mg PO DAILY [facility] Last Admin: 08/22/25 08:25 Dose: 50 mg Lidocaine (Lidocaine 4 % Patch Adh..Patch) 1 patch TRANSDERMA DAILY PRN; Protocol PRN Reason: Pain, Moderate(Pain Scale 4-6) Last Admin: 08/21/25 16:58 Dose: 1 patch Lorazepam (Lorazepam 0.5 Mg Tablet) 0.5 mg PO DAILY PRN PRN Reason: Anxiety Last Admin: 08/21/25 01:24 Dose: 0.5 mg Magnesium Hydroxide (Milk Of Magnesia 30 Ml Oral.Susp) 30 ml PO DAILY PRN PRN Reason: Constipation Nicotine (Nicotine 21 Mg Patch.Td24) 21 mg TRANSDERMA DAILY [facility] Last Admin: 08/22/25 08:25 Dose: 21 mg Nicotine Polacrilex (Nicotine Polacrilex 2 Mg Gum) 4 mg BUCCAL Q2H PRN PRN Reason: Nicotine Cravings Last Admin: 08/18/25 17:54 Dose: 4 mg Ondansetron HCl (Ondansetron Odt 8 Mg Tab.Rapdis) 8 mg TRANSLINGU Q12H PRN PRN Reason: Nausea and Vomiting Last Admin: 08/20/25 22:27 Dose: 8 mg Quetiapine Fumarate (Quetiapine Fumarate 25 Mg Tablet) 75 mg PO BEDTIME [facility] Last Admin: 08/21/25 21:12 Dose: 75 mg Sertraline HCl (Sertraline Hcl 50 Mg Tablet) 50 mg PO DAILY [facility] Last Admin: 08/22/25 08:25 Dose: 50 mg Trazodone HCl (Trazodone Hcl 50 Mg Tablet) 50 mg PO BEDTIME MRX1 PRN PRN Reason: Insomnia Last Admin: 08/21/25 21:11 Dose: 50 mg Allergies Allergies Allergy/AdvReac Type Severity Reaction Status Date / Time No Known Allergies Allergy Verified 08/17/25 12:40 Assessment & Plan Assessment & Plan (1) MDD (major depressive disorder), recurrent episode: Status: Acute Code(s): F33.9 - Major depressive disorder, recurrent, unspecified (2) PTSD (post-traumatic stress disorder): Status: Acute Code(s): F43.10 - Post-traumatic stress disorder, unspecified Plan Patient is a 20-year-old male with history of MDD and PTSD who presented to ER due to suicidal ideation with a plan to jump off a bridge secondary to increased depression. Plan: CV 15 minute safety checks continue home medications obtain collateral encourage groups ? referral to [facility] Discharge planning 08/19: Active on unit. attending groups. Patient continues to reports feeling depressed ; pt stated, I just keep thinking about my mom if I'm not listening to music . Patient states his suicidal thoughts went away but come and go . denies SI/HI/VH/AH. denies any side effects from medications. continue tx plan. 08/20: Active on unit. attending groups. keeping to self. 3 day notice up on 08/22/25. Patient continues to reports feeling depressed ; pt stated, I'm always thinking about my mom. I try to distract myself with exercising and music . Patient report he is considering joining the [employer] so he can play basketball and swim . denies SI/HI/VH/AH. Continue tx plan. 08/21: Retracted 3 day notice and signed another one, which is now up on 08/24/25. Patient continues to reports feeling depressed ; pt stated, I keep having flash backs and I'm not sleeping well last night. I feel like the medications are helping a little bit . Discussed changing Seroquel to scheduled at night rather than PRN; pt agreed. Seroquel increased to 75mg PO bedtime. denies SI/HI/VH/AH. 08/22: 3 day notice up on 08/24/25. Active on unit. social with peers. observed laughing and joking. Patient reports he is starting to feel better and feels better than when I got here . denies SI/HI/VH/AH. Patient reports he slept well last night with the increase in Seroquel. Per nursing, slept 8 hours last night. continue tx plan. Patient educated on: diagnosis, medication risk/benefits and therapeutic strategies Reason for continued inpatient stay Substantial Risk for: med/psych decompensation Time Spent With Patient Time: Total time managing care of this patient today _20___ minutes.
--- NOTE | 2025-08-22 19:24 | PC.NURSE ---
This evening, pt began experiencing flashback trauma. Began crying, punching the wall, stated Why did they do this to me it's not fair . Stated he couldn't stop thinking about everything that happened . Pt was given Seroquel 100mg with little effect. Agreed to take more medication, provider was notified and an order was placed for Benadryl 50mg, Ativan 1mg and Haldol 5mg. Patient currently in the side room communicating with staff, pending effects of medications.
[2025-08-23 07:00] VITALS: BMI 17.2
[2025-08-23 08:00] VITALS: BP 139/87; PULSE 82; RESP 16; TEMP 36.9; O2SAT 99
[2025-08-23] MEDS: Nicotine 21 MG PATCH.TD24 TRANSDERMA (09:07)
--- NOTE | 2025-08-23 10:00 | P.PNPSI_ITS ---
Subjective Subjective Date of Service: 08/23/25 Reason For Visit: Crisis Subjective Notes: 3 Day Interim History: 3 day notice up on 08/24/25. Active on unit. social with peers. Patient reports feeling good today; he reports having a flashback last evening which made him upset. Patient reports he plans on following up with his outpatient providers. denies SI/HI/VH/AH. Medication Compliance: Yes Side effects from medications: No Attending Groups: Yes Mental Status Exam Mental Status Exam Narrative: Pt is alert and oriented; behavior is cooperative and calm; dressed in casual attire; mood is described as good ; eye contact appropriate; Speech is normal rate, volume and not pressured; thought process is organized; Thought content is on tx/discharge; denies SI/HI/VH/AH. Diagnostics Vital Signs (24Hr): BMI result Body Mass Index 17.7 Labs 08/17/25 13:22 08/20/25 07:22 Medications Medications Current Medications Acetaminophen (Acetaminophen 325 Mg Tablet) 650 mg PO Q6H PRN PRN Reason: Headache/Pain, Scale 1-10 Last Admin: 08/21/25 21:11 Dose: 650 mg Al Hydroxide/Mg Hydroxide (Magnesium Hydrox/Alum Hydrox 30 Ml Oral.Susp) 30 ml PO Q6H PRN PRN Reason: Heartburn/Nausea Hydroxyzine HCl (Hydroxyzine Hcl 25 Mg Tablet) 25 mg PO Q6H PRN PRN Reason: mild anxiety Last Admin: 08/22/25 16:45 Dose: 25 mg Ibuprofen (Ibuprofen 600 Mg Tablet) 600 mg PO Q8H PRN PRN Reason: Pain, Moderate(Pain Scale 4-6) Last Admin: 08/21/25 16:57 Dose: 600 mg Lamotrigine (Lamotrigine 25 Mg Tablet) 50 mg PO DAILY [facility] Last Admin: 08/23/25 09:06 Dose: 50 mg Lidocaine (Lidocaine 4 % Patch Adh..Patch) 1 patch TRANSDERMA DAILY PRN; Protocol PRN Reason: Pain, Moderate(Pain Scale 4-6) Last Admin: 08/21/25 16:58 Dose: 1 patch Lorazepam (Lorazepam 0.5 Mg Tablet) 0.5 mg PO DAILY PRN PRN Reason: Anxiety Last Admin: 08/22/25 18:10 Dose: 0.5 mg Magnesium Hydroxide (Milk Of Magnesia 30 Ml Oral.Susp) 30 ml PO DAILY PRN PRN Reason: Constipation Nicotine (Nicotine 21 Mg Patch.Td24) 21 mg TRANSDERMA DAILY [facility] Last Admin: 08/23/25 09:07 Dose: 21 mg Nicotine Polacrilex (Nicotine Polacrilex 2 Mg Gum) 4 mg BUCCAL Q2H PRN PRN Reason: Nicotine Cravings Last Admin: 08/18/25 17:54 Dose: 4 mg Ondansetron HCl (Ondansetron Odt 8 Mg Tab.Rapdis) 8 mg TRANSLINGU Q12H PRN PRN Reason: Nausea and Vomiting Last Admin: 08/20/25 22:27 Dose: 8 mg Quetiapine Fumarate (Quetiapine Fumarate 25 Mg Tablet) 75 mg PO BEDTIME [facility] Last Admin: 08/22/25 18:58 Dose: 75 mg Quetiapine Fumarate (Quetiapine Fumarate 25 Mg Tablet) 25 mg PO BID PRN PRN Reason: severe anxiety/agitation Last Admin: 08/23/25 09:21 Dose: 25 mg Sertraline HCl (Sertraline Hcl 50 Mg Tablet) 50 mg PO DAILY [facility] Last Admin: 08/23/25 09:06 Dose: 50 mg Trazodone HCl (Trazodone Hcl 50 Mg Tablet) 50 mg PO BEDTIME MRX1 PRN PRN Reason: Insomnia Last Admin: 08/22/25 22:34 Dose: 50 mg Allergies Allergies Allergy/AdvReac Type Severity Reaction Status Date / Time No Known Allergies Allergy Verified 08/17/25 12:40 Assessment & Plan Assessment & Plan (1) MDD (major depressive disorder), recurrent episode: Status: Acute Code(s): F33.9 - Major depressive disorder, recurrent, unspecified (2) PTSD (post-traumatic stress disorder): Status: Acute Code(s): F43.10 - Post-traumatic stress disorder, unspecified Plan Patient is a 20-year-old male with history of MDD and PTSD who presented to ER due to suicidal ideation with a plan to jump off a bridge secondary to increased depression. Plan: CV 15 minute safety checks continue home medications obtain collateral encourage groups ? referral to [facility] Discharge planning 08/19: Active on unit. attending groups. Patient continues to reports feeling depressed ; pt stated, I just keep thinking about my mom if I'm not listening to music . Patient states his suicidal thoughts went away but come and go . denies SI/HI/VH/AH. denies any side effects from medications. continue tx plan. 08/20: Active on unit. attending groups. keeping to self. 3 day notice up on 08/22/25. Patient continues to reports feeling depressed ; pt stated, I'm always thinking about my mom. I try to distract myself with exercising and music . Patient report he is considering joining the [employer] so he can play basketball and swim . denies SI/HI/VH/AH. Continue tx plan. 08/21: Retracted 3 day notice and signed another one, which is now up on 08/24/25. Patient continues to reports feeling depressed ; pt stated, I keep having flash backs and I'm not sleeping well last night. I feel like the medications are helping a little bit . Discussed changing Seroquel to scheduled at night rather than PRN; pt agreed. Seroquel increased to 75mg PO bedtime. denies SI/HI/VH/AH. 08/22: 3 day notice up on 08/24/25. Active on unit. social with peers. observed laughing and joking. Patient reports he is starting to feel better and feels better than when I got here . denies SI/HI/VH/AH. Patient reports he slept well last night with the increase in Seroquel. Per nursing, slept 8 hours last night. continue tx plan. 08/23: 3 day notice up on 08/24/25. Active on unit. social with peers. Patient reports feeling good today; he reports having a flashback last evening which made him upset. Patient reports he plans on following up with his outpatient providers. denies SI/HI/VH/AH. Patient educated on: diagnosis and medication risk/benefits Reason for continued inpatient stay Substantial Risk for: stable for discharge Time Spent With Patient Time: Total time managing care of this patient today _20___ minutes.
[2025-08-23 20:51] VITALS: BP 160/98; PULSE 100; RESP 16; TEMP 37.2; O2SAT 97
[2025-08-24 07:45] VITALS: BP 115/69; PULSE 84; RESP 16; TEMP 36.9; O2SAT 97
--- NOTE | 2025-08-24 10:00 | P.DS_ITS ---
DS: Providers Provider Date of Service: 08/24/25 Date of admission: 08/17/25 16:13 Date of discharge: 08/24/25 Primary care physician: Aruna Baeza NP Admitting clinician: Roberta Erazo Attending physician on admission: Gab Pugh Attending physician on discharge: Gab Pugh Discharging clinician: Roberta Erazo DS: Diagnosis Discharge Diagnosis (1) MDD (major depressive disorder), recurrent episode: Status: Acute (2) PTSD (post-traumatic stress disorder): Status: Acute DS: Medications Discharge Medications Home Medications: Home Medications ?Medication ?Instructions ?Recorded ?Confirmed lamotrigine 25 mg tablet 50 mg PO DAILY depressive di sorder 08/17/25 08/17/25 lorazepam 0.5 mg tablet 0.5 mg PO DAILY PRN anxiety 08/17/25 08/17/25 sertraline 50 mg tablet 50 mg PO DAILY 08/17/2507/26 Previous Rx's ?Medication ?Instructions ?Recorded quetiapine 25 mg tablet 25 mg PO BID PRN severe 07/27 anxiety/agitation 7 days #14 tabs quetiapine 25 mg tablet 75 mg (3 x 25 mg) PO BEDTIME 14 08/23/25 days #42 tabs Mental Status Exam Mental Status Exam Narrative: Pt is alert and oriented; behavior is cooperative and calm; dressed in casual attire; mood is described as good ; eye contact appropriate; Speech is normal rate, volume and not pressured; thought process is organized; Thought content is on tx/discharge; denies SI/HI/VH/AH. DS: Summary Hospital Course Hospital Course: Patient is a 20-year-old male with history of MDD and PTSD who presented to ER due to suicidal ideation with a plan to jump off a bridge secondary to increased depression. Per crisis report, it is unclear as to what led to exacerbation of depressive symptoms. Patient presents guarded. He reports feeling depressed. Patient reports suicide attempt several years ago via trying to choke himself and reports walking to the [place] with thoughts to jump off but stated someone pulled over and stopped him . Denies HI/VH/AH. He reports having flashbacks and describes it as feeling like he is out of his body when he is trying to fall asleep . He reports trauma of his mother passing away when he was 6 years old. hx of one other inpatient psychiatric hospitalization; Last inpatient psychiatric hospitalization when he was 12. Patient has outpatient psychiatric providers through [facility]. Patient reports daily cannabis use. Denies any other substance use. During admission assessment, patient presents alert and oriented x3. Calm and cooperative. Patient reports feeling depressed; patient stated, I get flashbacks of my mom. She when I was 6 of an overdose. I'm the one who found her. I got that all in my mind like a picture. It makes me depressed and makes me want to kill myself . Patient denies HI/VH/AH. Patient reports suicidal thoughts come and go . He reports it helps when he speaks to his therapist. Patient stated, I would get help before acting on anything. That's why I'm here . Patient reports he does not have nightmares. Patient reports he was medication with one of his medications but can not recall the name; educated regarding the importance of medication compliance. Plan: CV 15 minute safety checks continue home medications obtain collateral encourage groups ? referral to [facility] Discharge planning Active on unit. attending groups. Patient continues to reports feeling depressed ; pt stated, I just keep thinking about my mom if I'm not listening to music . Patient states his suicidal thoughts went away but come and go . denies SI/HI/VH/AH. denies any side effects from medications. continue tx plan. Active on unit. attending groups. keeping to self. 3 day notice up on 08/22/25. Patient continues to reports feeling depressed ; pt stated, I'm always thinking about my mom. I try to distract myself with exercising and music . Patient report he is considering joining the [employer] so he can play basketball and swim . denies SI/HI/VH/AH. Continue tx plan. Retracted 3 day notice and signed another one, which is now up on 08/24/25. Patient continues to reports feeling depressed ; pt stated, I keep having flash backs and I'm not sleeping well last night. I feel like the medications are helping a little bit . Discussed changing Seroquel to scheduled at night rather than PRN; pt agreed. Seroquel increased to 75mg PO bedtime. denies SI/HI/VH/AH. 3 day notice up on 08/24/25. Active on unit. social with peers. observed laughin g and joking. Patient reports he is starting to feel better and feels better than when I got here . denies SI/HI/VH/AH. Patient reports he slept well last night with the increase in Seroquel. Per nursing, slept 8 hours last night. continue tx plan. 3 day notice up on 08/24/25. Active on unit. social with peers. Patient reports feeling good today; he reports having a flashback last evening which made him upset. Patient reports he plans on following up with his outpatient providers. denies SI/HI/VH/AH. Status at Discharge Cognitive/behavioral status at discharge: Patient has insight and demonstrates good judgment in terms of wanting to pursue treatment. Patient has a safety plan that includes presenting to the closest ER or calling 911 if feeling unsafe. Functional status at discharge: independent ambulation Overall status at discharge: patient is back to baseline Time Spent with Patient Time attestation: Total time managing care of this patient today _20___ minutes. Time spent: Less than 30 minutes Discharge Plan Discharge Anticipated Discharge Date/Time: 08/24/25 11:00 Patient Disposition: Home, Self-Care Discharge Diagnosis: MDD, PTSD Referrals: Junior Sifuentes ([facility] therapist) [Other] - 08/24/25 1:15 pm Referral Note: In person appointment Bola Rivera ([facility] psychiatrist) [Other] - 09/06/25 2:00 pm Referral Note: telehealth appointment. Aruna Baeza NP [Primary Care Provider, [facility]] - 1 Week Referral Note: 08-20-25 Please contact your primary care provider within 7- 10 days of discharge to schedule your follow up appt. No release on file. Discharge Medications: New quetiapine 25 mg Tablet 75 mg PO BEDTIME 14 Days Qty: 42 0RF quetiapine 25 mg Tablet 25 mg PO BID PRN (Reason: severe anxiety/agitation) 7 Days Qty: 14 0RF Continued lamotrigine 25 mg tablet 50 mg PO DAILY lorazepam 0.5 mg tablet 0.5 mg PO DAILY PRN (Reason: anxiety) sertraline 50 mg tablet 50 mg PO DAILY Patient Comments: Pt recently filled but is unclear if he is taking the medication or not Discontinued quetiapine [Seroquel] 50 mg tablet 50 mg PO BEDTIME PRN (Reason: insomnia) Discharge Orders: Discharge Order (Routine); Ordered 08/24/25 Ordered By: Itzel Escobedo Diet: Regular diet Activity on Discharge: As tolerated Stand Alone Forms: Patient Portal Discharge page, Community Support Print Language: Armenian Care Plan Goals: Maintain mood and safe behaviors Take medications as prescribed Practice coping skills Continue with outpatient providers and reach out to them as needed Health Concerns: Mood stability and behaviors Plan of Treatment: Follow up with your PCP, psychiatric provider and other outpatient providers regarding above concerns Take medications as prescribed Assessment: Patient has insight and demonstrates good judgment in terms of wanting to pursue treatment. Patient has a safety plan that includes presenting to the closest ER or calling 911 if feeling unsafe. Discharge Date/Time: 08/24/25 10:54
== END 2025-08-24 10:54 | disposition home or self-care (01) | DRG 751 ==
LOC: HO.ED 14:23 → HO.PADLT16 16:19
PROVIDERS: Nurse Practitioner Family; Admitting Provider Registered Nurse; Emergency Provider Emergency Medicine; PCP Nurse Practitioner Family; Responsible Provider Registered Nurse; Visit Provider Psychiatry & Neurology Psychiatry
DX: F33.9 Major depressive disorder, recurrent, unspecified (principal); F43.10 Post-traumatic stress disorder, unspecified; Z20.822 Contact with and (suspected) exposure to COVID-19; Z79.899 Other long term (current) drug therapy
CPT/HCPCS: 36415; 80048; 80053; 80061; 80076; 80307; 81001; 83036; 85025; 87502; 87635; 93005; 99285; S9485

== ENCOUNTER → 2025-08-17 16:01 | Outpatient (BNV) | payer MEDICAID, SELFPAY | PROVIDERS: Admitting Provider Registered Nurse; Emergency Provider Emergency Medicine; PCP Nurse Practitioner Family; Visit Provider Internal Medicine Cardiovascular Disease | DX: Z13.6 Encounter for screening for cardiovascular disorders (principal) | CPT/HCPCS: 93010 ==

== ENCOUNTER → 2025-08-17 16:13 | Outpatient (BNV) | payer OTHER, SELFPAY | PROVIDERS: Admitting Provider Registered Nurse; Emergency Provider Emergency Medicine; PCP Nurse Practitioner Family; Responsible Provider Registered Nurse; Visit Provider Registered Nurse | DX: F33.2 Major depressive disorder, recurrent severe without psychotic features (principal); F43.11 Post-traumatic stress disorder, acute | CPT/HCPCS: 99231; 99232; 99233 ==